=== PATIENT | female | born 1970 | race Native Hawaiian/Other Pacific Islander ===

== ENCOUNTER 2017-07-31 12:23 | Outpatient (CLI) | payer OTHER ==
[~2017-07-31 12:23] MED LIST: ACET7.5T70 PO; AMLO10TA PO; BUPR150T PO; CELEXA20 MG PO; ENTERIC COATED325 MG PO; GABA100C2 PO; GLIP10TA55 PO; HYDR25TA60 PO; LISI20TA11 PO; LOFIBRA54 MG PO; LOPRESSOR100 MG PO; LOVASTATIN40 MG PO; METF500T PO; PROAIR HFA IN; RLFLU500T PO; SPIRIVA IN; ZESTRIL40 MG PO
== END 2017-07-31 12:26 | disposition short-term general hospital (02) ==
LOC: AMB 12:23
DX: R07.89 Other chest pain (principal); R05 Cough; R50.9 Fever, unspecified
CPT/HCPCS: A0425; A0427

== ENCOUNTER 2017-07-31 12:26 | Emergency (ER) | payer OTHER ==
[~2017-07-31] VITALS: Ht 165.1 cm; Wt 74.8 kg
[2017-07-31 12:26] VITALS: TEMP 97.7
[2017-07-31 13:30] VITALS: BP 150/84
[2017-07-31 13:31] LABS: PLATELET COUNT 222 K/uL (152-353)
[2017-07-31 13:36] LABS: POTASSIUM 4.4 mmol/L (3.6-5.2); SODIUM 141 mmol/L (136-145)
== END 2017-07-31 14:21 | disposition home or self-care (01) ==
LOC: ED 12:26
PROVIDERS: Specialist
DX: J44.1 Chronic obstructive pulmonary disease with (acute) exacerbation (principal); J06.9 Acute upper respiratory infection, unspecified
CPT/HCPCS: 36415; 80053; 85027; 94640; 94664; 94760; 99283

== ENCOUNTER 2017-08-01 11:15 | Observation (INO) | payer OTHER ==
[~2017-08-01] VITALS: Ht 165.1 cm; Wt 73.5 kg
[2017-08-01 15:48] LABS: POTASSIUM 4.5 mmol/L (3.6-5.2); SODIUM 136 mmol/L (136-145)
[2017-08-01 16:09] LABS: PLATELET COUNT 278 K/uL (152-353)
[2017-08-01 17:33] VITALS: BP 147/89; TEMP 98.8; Ht 165.1 cm; Wt 73.5 kg
[2017-08-01 20:00] VITALS: BP 102/57; TEMP 97.7
--- NOTE | 2017-08-01 23:40 | NUR ---
RESPIRATORY THERAPIST AT BEDSIDE. BREATHING TREATMENT GIVEN.
--- NOTE | 2017-08-01 23:49 | NUR ---
PT REQUESTS MEDICATION FOR COUGH. ER DOCTOR NOTIFIED. ORDER RECEIVED.
[2017-08-02] VITALS: BP 113/45; TEMP 97.6
--- NOTE | 2017-08-02 00:25 | NUR ---
TESSALON PERLES 100MG GIVEN PO FOR COUGH.
[2017-08-02 04:00] VITALS: BP 142/84; TEMP 97.8
--- NOTE | 2017-08-02 04:31 | NUR ---
PT STATES SHE FEELS RAW IN CHEST FROM COUGHING. PT GIVEN TYLENOL 500MG PO
[2017-08-02 08:00] VITALS: BP 159/91; TEMP 98.3
[2017-08-02 11:51] VITALS: BP 143/73; TEMP 98.7
--- NOTE | 2017-08-02 14:09 | NUR ---
DISCHARGE INSTRUCTIONS GIVEN TO PT ALONG WITH ORDERED PRESCRIPTIONS. PT VERBALIZED UNDERSTANDING. PT D/C VIA WHEELCHAIR AT THIS TIME.
== END 2017-08-02 14:07 | disposition home or self-care (01) ==
LOC: MED/SURG 11:15
PROVIDERS: ADMIT Nurse Practitioner
DX: J18.8 Other pneumonia, unspecified organism (principal); R06.02 Shortness of breath; I10 Essential (primary) hypertension; Z72.0 Tobacco use; R05 Cough; J84.89 Other specified interstitial pulmonary diseases; I25.10 Atherosclerotic heart disease of native coronary artery without angina pectoris
CPT/HCPCS: 36600; 80053; 82805; 85027; 87040; 87070; 87205; 93005; 94640; 94664; 94760; 99220; G0378; G0379; J2930

== ENCOUNTER 2017-12-01 14:39 | Outpatient (CLI) | payer OTHER | END 2017-12-01 14:52 | disposition short-term general hospital (02) | LOC: AMB 14:39 | DX: R07.89 Other chest pain (principal); R11.2 Nausea with vomiting, unspecified | CPT/HCPCS: A0425; A0427 ==

== ENCOUNTER 2017-12-03 05:29 | Observation (INO) | payer OTHER ==
[~2017-12-03] VITALS: Ht 165.1 cm; Wt 85.0 kg
[2017-12-03 05:28] VITALS: BP 158/102; TEMP 97.3
[2017-12-03 05:54] LABS: POTASSIUM 3.9 mmol/L (3.6-5.2)
[2017-12-03 06:09] LABS: PLATELET COUNT 235 K/uL (152-353)
[2017-12-03 06:41] VITALS: BP 164/95
[2017-12-03 07:23] VITALS: BP 161/88
[2017-12-03 08:00] VITALS: BP 155/89
[2017-12-03 18:14] VITALS: BP 158/85; TEMP 98.7; Ht 165.1 cm; Wt 85.0 kg
[2017-12-03 20:00] VITALS: BP 143/74; TEMP 98.9
[2017-12-04] VITALS: BP 173/79; TEMP 98.8
[2017-12-04 04:00] VITALS: BP 155/74; TEMP 98.7
[2017-12-04 05:24] LABS: PLATELET COUNT 180 K/uL (152-353)
[2017-12-04 05:38] LABS: POTASSIUM 3.6 mmol/L (3.6-5.2)
[2017-12-04 07:49] VITALS: BP 149/80; TEMP 98.6
[2017-12-04] MEDS ORDERED: LEVAQUIN250 MG PO ×2 (11:57)
== END 2017-12-04 12:25 | disposition home or self-care (01) ==
LOC: ED 05:29 → MED/SURG 06:30
PROVIDERS: Specialist
DX: J18.8 Other pneumonia, unspecified organism (principal); R06.02 Shortness of breath
CPT/HCPCS: 36415; 36600; 80053; 82550; 82805; 84484; 85027; 87040; 93005; 94640; 94664; 94760; 96361; 96365; 96366; 96367; 96372; 96374; 96375; 99220; 99284; G0378; J0696; J1650; J1885; J2930; J7120

== ENCOUNTER 2018-06-12 18:00 | Outpatient (CLI) | payer OTHER ==
[~2018-06-12 18:00] MED LIST changes: +LEVAQUIN250 MG PO
== END 2018-06-12 18:02 | disposition short-term general hospital (02) ==
LOC: AMB 18:00
DX: R07.89 Other chest pain (principal)
CPT/HCPCS: A0425; A0427

== ENCOUNTER 2018-06-12 18:04 | Emergency (ER) | payer OTHER ==
[~2018-06-12] VITALS: Ht 157.5 cm; Wt 68.0 kg
[2018-06-12 18:04] VITALS: TEMP 98
[2018-06-12 18:27] LABS: PLATELET COUNT 184 K/uL (152-353)
[2018-06-12 18:50] LABS: POTASSIUM 3.5 mmol/L (3.6-5.2); SODIUM 135 mmol/L (136-145)
[2018-06-12 19:15] VITALS: BP 113/72
== END 2018-06-12 19:20 | disposition home or self-care (01) ==
LOC: ED 18:04
PROVIDERS: Family Medicine
DX: R07.89 Other chest pain (principal); R00.0 Tachycardia, unspecified
CPT/HCPCS: 80053; 84484; 85027; 93005; 99283

== ENCOUNTER 2018-06-17 11:21 | Outpatient (CLI) | payer OTHER ==
[2018-06-17] MEDS ORDERED: TRAMADOL HCL100 MG PO (14:44)
[2018-06-17] MEDS ORDERED: 904272561 PO (14:45)
== END 2018-06-17 11:24 | disposition short-term general hospital (02) ==
LOC: AMB 11:21
DX: L08.89 Other specified local infections of the skin and subcutaneous tissue (principal)
CPT/HCPCS: A0425; A0427

== ENCOUNTER 2018-06-17 11:28 | Inpatient (IN) | payer OTHER ==
[~2018-06-17] VITALS: Ht 165.1 cm; Wt 77.1 kg
[2018-06-17] VITALS (7 sets, daily range): BP systolic 102–144; BP diastolic 54–84; TEMP 98.1–98.7; Ht 165.1 cm; Wt 77.1 kg
[2018-06-17 12:09] LABS: PLATELET COUNT 312 K/uL (152-353)
[2018-06-17 12:13] LABS: POTASSIUM 4.1 mmol/L (3.6-5.2)
[2018-06-17] MEDS ORDERED: TRAMADOL HCL100 MG PO (14:44)
[2018-06-17] MEDS ORDERED: 904272561 PO (14:45)
[2018-06-18 00:07] VITALS: BP 116/67; TEMP 100.3
[2018-06-18 04:00] VITALS: BP 96/58; TEMP 98.5
[2018-06-18 05:13] LABS: PLATELET COUNT 277 K/uL (152-353)
[2018-06-18 05:35] LABS: POTASSIUM 5.4 mmol/L (3.6-5.2)
[2018-06-18 08:08] VITALS: BP 96/64; TEMP 98.4
[2018-06-18 12:00] VITALS: BP 108/48; TEMP 98.8
[2018-06-18 16:00] VITALS: BP 108/61; TEMP 98.5
[2018-06-18 20:00] VITALS: BP 118/59; TEMP 98.8
[2018-06-19] VITALS: BP 113/59; TEMP 98.8
[2018-06-19 08:00] VITALS: BP 143/87; TEMP 98.6
[2018-06-19 12:00] VITALS: BP 122/77; TEMP 99.1
[2018-06-19 16:00] VITALS: BP 132/77; TEMP 98.4
[2018-06-19 20:00] VITALS: BP 134/75; TEMP 98.7
[2018-06-20 08:00] VITALS: BP 153/99; TEMP 97.7
== END 2018-06-20 10:10 | disposition left against medical advice (07) | DRG 603 ==
LOC: ED 11:28 → MED/SURG 14:10
PROVIDERS: Emergency Medicine
DX: L03.115 Cellulitis of right lower limb (principal); I10 Essential (primary) hypertension; I25.10 Atherosclerotic heart disease of native coronary artery without angina pectoris; E78.49 Other hyperlipidemia; Z72.0 Tobacco use; E11.9 Type 2 diabetes mellitus without complications; I25.2 Old myocardial infarction; J44.9 Chronic obstructive pulmonary disease, unspecified
CPT/HCPCS: 36415; 36600; 80053; 81000; 82805; 83605; 85027; 87040; 94640; 94664; 94760; 96360; 96361; 96365; 96375; 99284; J0696; J1100; J1815; J1885; J2175; J2270; J2543; J2930

== ENCOUNTER 2018-07-02 11:01 | Outpatient (CLI) | payer OTHER ==
[~2018-07-02 11:01] MED LIST changes: +904272561 PO; +TRAMADOL HCL100 MG PO
[2018-07-02 11:31] LABS: PLATELET COUNT 404 K/uL (152-353)
[2018-07-02 11:38] LABS: POTASSIUM 4.3 mmol/L (3.6-5.2)
== END 2018-07-02 19:19 | disposition home or self-care (01) ==
LOC: INF 11:01
DX: L03.115 Cellulitis of right lower limb (principal)
CPT/HCPCS: 80053; 85027; 85651; 86140; 96365; J3370

== ENCOUNTER 2018-07-03 08:17 | Outpatient (CLI) | payer OTHER ==
[~2018-07-03] VITALS: Ht 165.1 cm; Wt 76.2 kg
[2018-07-03 08:25] VITALS: BP 1298/71; TEMP 98.4
[2018-07-03 08:43] VITALS: BP 121/70; TEMP 98.6
== END 2018-07-03 22:37 | disposition home or self-care (01) ==
LOC: INF 08:17
DX: L03.115 Cellulitis of right lower limb (principal)
CPT/HCPCS: 96365; J3370

== ENCOUNTER 2018-07-30 15:26 | Inpatient (IN) | payer OTHER ==
[~2018-07-30] VITALS: Ht 160 cm; Wt 89.9 kg
[2018-07-30 15:26] VITALS: BP 150/82; TEMP 99.5
[2018-07-30 16:13] LABS: PLATELET COUNT 267 K/uL (152-353)
[2018-07-30 16:26] VITALS: BP 136/76
[2018-07-30 16:28] LABS: POTASSIUM 3.9 mmol/L (3.6-5.2)
[2018-07-30 17:26] VITALS: BP 168/83
[2018-07-30 19:21] VITALS: BP 142/89; TEMP 98.9; Ht 160 cm; Wt 89.9 kg
[2018-07-30 20:00] VITALS: BP 139/77; TEMP 98.6
[2018-07-31] VITALS: BP 123/61; TEMP 98.1
[2018-07-31 04:00] VITALS: BP 124/66; TEMP 98.6
[2018-07-31 08:00] VITALS: BP 123/61; TEMP 98.4
[2018-07-31 16:00] VITALS: BP 101/48; TEMP 97.9
[2018-07-31 20:00] VITALS: BP 107/64; TEMP 98.2
[2018-08-01 00:18] VITALS: BP 105/49; TEMP 98.2
[2018-08-01 04:00] VITALS: BP 136/67; TEMP 98.8
[2018-08-01 06:22] LABS: PLATELET COUNT 202 K/uL (152-353)
[2018-08-01 06:49] LABS: POTASSIUM 4.4 mmol/L (3.6-5.2)
[2018-08-01 08:00] VITALS: BP 118/61; TEMP 97.7
[2018-08-01 12:00] VITALS: BP 110/67; TEMP 98.1
[2018-08-01 16:00] VITALS: BP 140/73; TEMP 97.9
[2018-08-01 20:00] VITALS: BP 133/83; TEMP 98.7
[2018-08-02] VITALS: BP 139/87; TEMP 98.4
[2018-08-02 04:00] VITALS: BP 155/79; TEMP 96.7
[2018-08-02 06:10] LABS: PLATELET COUNT 191 K/uL (152-353)
[2018-08-02 06:34] LABS: POTASSIUM 5.3 mmol/L (3.6-5.2)
[2018-08-02 08:00] VITALS: BP 146/81; TEMP 98.8
[2018-08-02 12:00] VITALS: BP 151/87; TEMP 98.4
[2018-08-02 16:03] VITALS: BP 137/82; TEMP 98.2
[2018-08-02 20:00] VITALS: BP 117/75; TEMP 98.8
[2018-08-03] VITALS (7 sets, daily range): BP systolic 109–144; BP diastolic 65–85; TEMP 97.6–98.7
[2018-08-03 05:45] LABS: PLATELET COUNT 170 K/uL (152-353)
[2018-08-03 06:00] LABS: POTASSIUM 3.9 mmol/L (3.6-5.2)
[2018-08-04 04:24] VITALS: BP 134/80; TEMP 97.9
[2018-08-04 05:45] LABS: PLATELET COUNT 224 K/uL (152-353)
[2018-08-04 06:05] LABS: POTASSIUM 4.2 mmol/L (3.6-5.2)
[2018-08-04 08:04] VITALS: BP 166/114; TEMP 97.8
[2018-08-04 12:03] VITALS: BP 162/103; TEMP 97.6
[2018-08-04 16:10] VITALS: BP 154/97; TEMP 97.6
[2018-08-04 19:54] VITALS: BP 154/96; TEMP 98.6
[2018-08-05] VITALS: BP 152/99; TEMP 97.9
[2018-08-05 04:00] VITALS: BP 143/87; TEMP 98.4
[2018-08-05 08:05] VITALS: BP 169/119; TEMP 98.7
[2018-08-05 08:33] LABS: PLATELET COUNT 265 K/uL (152-353)
[2018-08-05 08:39] LABS: POTASSIUM 4.1 mmol/L (3.6-5.2)
[2018-08-05 12:09] VITALS: BP 164/112; TEMP 98.7
== END 2018-08-05 12:15 | disposition short-term general hospital (02) | DRG 540 ==
LOC: ED 15:26 → MED/SURG 17:35 → ED 18:05 → MED/SURG 08-05 12:15
PROVIDERS: Family Medicine
PROC: 02HV33Z Insertion of Infusion Device into Superior Vena Cava, Percutaneous Approach (ICD-10-PCS; principal; 2018-08-03)
DX: M86.8X7 Other osteomyelitis, ankle and foot (principal); L03.115 Cellulitis of right lower limb; I25.10 Atherosclerotic heart disease of native coronary artery without angina pectoris; I10 Essential (primary) hypertension; I25.2 Old myocardial infarction; E78.49 Other hyperlipidemia; J44.9 Chronic obstructive pulmonary disease, unspecified; F41.8 Other specified anxiety disorders; F17.210 Nicotine dependence, cigarettes, uncomplicated; Z91.19 Patient's noncompliance with other medical treatment and regimen; R07.89 Other chest pain; I48.91 Unspecified atrial fibrillation; R79.89 Other specified abnormal findings of blood chemistry; R91.8 Other nonspecific abnormal finding of lung field; R59.1 Generalized enlarged lymph nodes
CPT/HCPCS: 36415; 36416; 36600; 80053; 80202; 81000; 82550; 82805; 83036; 84484; 85027; 85379; 87040; 93005; 94640; 94644; 94645; 94664; 94760; 96374; 99284; A9576; C1768; J1100; J1650; J1885; J2405; J2543; J2930; J3370; J3490; J7120; Q0177; Q9963

== ENCOUNTER 2018-08-05 12:38 | Outpatient (CLI) | payer OTHER | END 2018-08-05 14:01 | disposition short-term general hospital (02) | LOC: AMB 12:38 | DX: M86.8X7 Other osteomyelitis, ankle and foot (principal); L03.115 Cellulitis of right lower limb; I25.10 Atherosclerotic heart disease of native coronary artery without angina pectoris; I10 Essential (primary) hypertension; I25.2 Old myocardial infarction; E78.49 Other hyperlipidemia; J44.9 Chronic obstructive pulmonary disease, unspecified; F41.8 Other specified anxiety disorders; F17.210 Nicotine dependence, cigarettes, uncomplicated; Z91.19 Patient's noncompliance with other medical treatment and regimen; R07.89 Other chest pain; I48.91 Unspecified atrial fibrillation; R79.89 Other specified abnormal findings of blood chemistry; R91.8 Other nonspecific abnormal finding of lung field; R59.1 Generalized enlarged lymph nodes | CPT/HCPCS: A0425; A0427 ==

== ENCOUNTER 2018-10-02 14:29 | Outpatient (CLI) | payer OTHER | END 2018-10-02 23:34 | disposition home or self-care (01) | LOC: RAD 14:29 | DX: M79.672 Pain in left foot (principal) ==

== ENCOUNTER 2018-12-15 11:13 | Emergency (ER) | payer OTHER ==
[~2018-12-15] VITALS: Ht 160 cm; Wt 89.8 kg
[2018-12-15 11:29] LABS: PLATELET COUNT 295 K/uL (152-353)
[2018-12-15 11:38] LABS: POTASSIUM 4.1 mmol/L (3.6-5.2)
[2018-12-15 13:48] VITALS: BP 132/89; TEMP 98
== END 2018-12-15 14:05 | disposition home or self-care (01) ==
LOC: ED 11:13
PROVIDERS: Emergency Medicine
DX: I50.9 Heart failure, unspecified (principal); R00.0 Tachycardia, unspecified
CPT/HCPCS: 80053; 81000; 82550; 82805; 83880; 84484; 85027; 93005; 96374; 96375; 99284; J1940; J2405

== ENCOUNTER 2018-12-23 20:17 | Outpatient (CLI) | payer OTHER | END 2018-12-23 20:20 | disposition short-term general hospital (02) | LOC: AMB 20:17 | DX: R06.02 Shortness of breath (principal) | CPT/HCPCS: A0425; A0427 ==

== ENCOUNTER 2018-12-23 20:25 | Emergency (ER) | payer OTHER ==
[~2018-12-23] VITALS: Ht 160 cm; Wt 77.1 kg
[2018-12-23 20:34] VITALS: TEMP 96.8
[2018-12-23 21:12] LABS: PLATELET COUNT 406 K/uL (152-353)
[2018-12-23 21:27] LABS: POTASSIUM 4.7 mmol/L (3.6-5.2); SODIUM 140 mmol/L (136-145)
[2018-12-23 22:41] VITALS: BP 148/108
== END 2018-12-23 23:10 | disposition home or self-care (01) ==
LOC: ED 20:25
PROVIDERS: Family Medicine
DX: R07.89 Other chest pain (principal)
CPT/HCPCS: 80053; 81000; 82550; 84484; 85027; 93005; 96374; 96375; 96376; 99284; J2405; J3490

== ENCOUNTER 2019-01-17 00:40 | Outpatient (CLI) | payer OTHER | END 2019-01-17 00:45 | disposition short-term general hospital (02) | LOC: AMB 00:40 | DX: R06.02 Shortness of breath (principal) | CPT/HCPCS: A0425; A0427 ==

== ENCOUNTER 2019-01-17 00:51 | Emergency (ER) | payer OTHER ==
[~2019-01-17] VITALS: Ht 160 cm; Wt 78.5 kg
[2019-01-17 01:33] LABS: PLATELET COUNT 297 K/uL (152-353)
[2019-01-17 01:45] LABS: POTASSIUM 4.4 mmol/L (3.6-5.2)
[2019-01-17 04:45] VITALS: BP 146/94; TEMP 97.2
== END 2019-01-17 04:47 | disposition home or self-care (01) ==
LOC: ED 00:51
PROVIDERS: Emergency Medicine
DX: J44.9 Chronic obstructive pulmonary disease, unspecified (principal); R79.89 Other specified abnormal findings of blood chemistry; R00.0 Tachycardia, unspecified
CPT/HCPCS: 36415; 80053; 82550; 82553; 83880; 84484; 85027; 85379; 93005; 94664; 96374; 96375; 99284; J1940; J2930; Q9963

== ENCOUNTER 2019-01-19 03:25 | Outpatient (CLI) | payer OTHER | END 2019-01-19 03:28 | disposition short-term general hospital (02) | LOC: AMB 03:25 | DX: R06.02 Shortness of breath (principal) | CPT/HCPCS: A0425; A0427 ==

== ENCOUNTER 2019-01-19 03:32 | Observation (INO) | payer OTHER ==
[~2019-01-19] VITALS: Ht 165.1 cm; Wt 90.0 kg
[2019-01-19 03:32] VITALS: BP 160/104; TEMP 98
[2019-01-19 04:28] LABS: PLATELET COUNT 354 K/uL (152-353)
[2019-01-19 04:34] LABS: POTASSIUM 3.2 mmol/L (3.6-5.2); SODIUM 141 mmol/L (136-145)
[2019-01-19 13:57] VITALS: BP 153/105; TEMP 97.5; Ht 165.1 cm; Wt 90.0 kg
[2019-01-19 16:00] VITALS: BP 136/96; TEMP 97.9
[2019-01-19 19:53] VITALS: BP 154/95; TEMP 97.9
== END 2019-01-19 21:00 | disposition left against medical advice (07) ==
LOC: ED 03:32 → MED/SURG 05:40
PROVIDERS: ADMIT Emergency Medicine
DX: R06.03 Acute respiratory distress (principal); R60.0 Localized edema; E87.6 Hypokalemia; I10 Essential (primary) hypertension; Z72.0 Tobacco use; I48.2 Chronic atrial fibrillation; I25.10 Atherosclerotic heart disease of native coronary artery without angina pectoris; I25.2 Old myocardial infarction; J44.9 Chronic obstructive pulmonary disease, unspecified; M15.8 Other polyosteoarthritis; M79.605 Pain in left leg; M79.604 Pain in right leg; K76.0 Fatty (change of) liver, not elsewhere classified
CPT/HCPCS: 80053; 82550; 82553; 83880; 84484; 85027; 85379; 93005; 94640; 94664; 94760; 96375; 96376; 99220; 99284; G0378; J1940

== ENCOUNTER 2019-01-21 16:43 | Emergency (ER) | payer OTHER ==
[~2019-01-21] VITALS: Ht 165.1 cm; Wt 89.8 kg
[2019-01-21 17:17] LABS: PLATELET COUNT 363 K/uL (152-353)
[2019-01-21 17:40] LABS: POTASSIUM 3.5 mmol/L (3.6-5.2); SODIUM 140 mmol/L (136-145)
[2019-01-21] MEDS ORDERED: ASPIRIN REGULA325 MG PO (18:23)
[2019-01-21] MEDS ORDERED: FURO40TA93 PO (18:24)
[2019-01-21 18:50] VITALS: TEMP 98.8
[2019-01-21 19:12] VITALS: BP 143/95
== END 2019-01-21 19:12 | disposition home or self-care (01) ==
LOC: ED 16:43
PROVIDERS: Emergency Medicine
DX: R06.09 Other forms of dyspnea (principal); I50.9 Heart failure, unspecified; J44.9 Chronic obstructive pulmonary disease, unspecified
CPT/HCPCS: 36415; 36600; 80053; 82550; 82553; 82805; 83735; 83880; 84484; 85027; 93005; 94664; 96374; 96375; 99284; J1940; J2405; J3490

== ENCOUNTER 2019-01-21 19:15 | Outpatient (CLI) | payer OTHER ==
[~2019-01-21 19:15] MED LIST changes: +ASPIRIN REGULA325 MG PO; +FURO40TA93 PO
== END 2019-01-21 20:13 | disposition short-term general hospital (02) ==
LOC: AMB 19:15
DX: R06.02 Shortness of breath (principal); J44.1 Chronic obstructive pulmonary disease with (acute) exacerbation
CPT/HCPCS: A0425; A0429

== ENCOUNTER 2019-01-25 05:44 | Inpatient (IN) | payer OTHER ==
[~2019-01-25] VITALS: Ht 165.1 cm; Wt 87.7 kg
[2019-01-25] VITALS (7 sets, daily range): BP systolic 133–192; BP diastolic 95–127; TEMP 97.5–98.7; Ht 165.1 cm; Wt 87.7 kg
[2019-01-25 06:22] LABS: PLATELET COUNT 322 K/uL (152-353)
[2019-01-25 06:29] LABS: SODIUM 141 mmol/L (136-145)
[2019-01-26] VITALS: BP 147/93; TEMP 97.8
[2019-01-26 04:00] VITALS: BP 138/105; TEMP 98.2
[2019-01-26 04:42] LABS: PLATELET COUNT 295 K/uL (152-353)
[2019-01-26 05:06] LABS: POTASSIUM 4.1 mmol/L (3.6-5.2)
[2019-01-26 08:00] VITALS: BP 143/101; TEMP 98
[2019-01-26 12:00] VITALS: BP 120/92; TEMP 97.8
[2019-01-26 16:00] VITALS: BP 132/82; TEMP 98.1
[2019-01-26 20:00] VITALS: BP 124/73; TEMP 98.5
[2019-01-27] VITALS: BP 154/104; TEMP 98.5
[2019-01-27 04:00] VITALS: BP 127/86; TEMP 97.7
[2019-01-27 08:00] VITALS: BP 136/93; TEMP 97.4
[2019-01-27 08:28] LABS: PLATELET COUNT 292 K/uL (152-353)
[2019-01-27 08:41] LABS: POTASSIUM 4.3 mmol/L (3.6-5.2); SODIUM 140 mmol/L (136-145)
[2019-01-27 12:00] VITALS: BP 103/71; TEMP 97.8
[2019-01-27 16:00] VITALS: BP 114/79; TEMP 98
[2019-01-27 19:48] VITALS: BP 111/72; TEMP 97.9
[2019-01-28] VITALS: BP 138/93; TEMP 97.5
[2019-01-28 04:00] VITALS: BP 103/69; TEMP 97.5
[2019-01-28 05:37] LABS: POTASSIUM 4.4 mmol/L (3.6-5.2)
[2019-01-28 08:00] VITALS: BP 113/88; TEMP 97.6
[2019-01-28 12:00] VITALS: BP 95/67; TEMP 98.1
[2019-01-28] MEDS ORDERED: ONDA4TAB3 PO (13:29)
[2019-01-28] MEDS ORDERED: GUAI200S10 PO (13:29)
[2019-01-28] MEDS ORDERED: CLON1TAB18 PO (13:29)
[2019-01-28] MEDS ORDERED: ULTRAM 50MG TAB PO (13:29)
[2019-01-28] MEDS ORDERED: DIPH25CA90 PO (13:29)
[2019-01-28] MEDS ORDERED: IPRATROPIUM/ INH (13:29)
[2019-01-28] MEDS ORDERED: PRED20TA27 PO (13:33)
[2019-01-28] MEDS ORDERED: METFTAB PO (13:43)
[2019-01-28] MEDS ORDERED: ZITHROMAX500 MG PO (13:50)
[2019-01-28] MEDS ORDERED: AMOX500T5 PO (13:50)
== END 2019-01-28 13:20 | disposition home or self-care (01) | DRG 191 ==
LOC: ED 05:44 → MED/SURG 07:00
PROVIDERS: ADMIT Internal Medicine
DX: J44.0 Chronic obstructive pulmonary disease with (acute) lower respiratory infection (principal); L03.115 Cellulitis of right lower limb; J20.9 Acute bronchitis, unspecified; J44.1 Chronic obstructive pulmonary disease with (acute) exacerbation; E11.9 Type 2 diabetes mellitus without complications; I77.6 Arteritis, unspecified; R53.1 Weakness; Z91.19 Patient's noncompliance with other medical treatment and regimen; I25.10 Atherosclerotic heart disease of native coronary artery without angina pectoris; I25.2 Old myocardial infarction; I11.0 Hypertensive heart disease with heart failure
CPT/HCPCS: 36415; 80048; 80053; 82550; 82947; 83036; 83880; 84484; 85027; 85379; 85651; 86038; 86140; 86308; 87040; 93005; 94640; 94664; 94760; 96365; 96375; 99284; J0456; J1815; J1940; J2405; J2930

== ENCOUNTER 2019-02-14 22:31 | Outpatient (CLI) | payer OTHER ==
[~2019-02-14 22:31] MED LIST changes: +AMOX500T5 PO; +CLON1TAB18 PO; +DIPH25CA90 PO; +GUAI200S10 PO; +IPRATROPIUM/ INH; +METFTAB PO; +ONDA4TAB3 PO; +PRED20TA27 PO; +ULTRAM 50MG TAB PO; +ZITHROMAX500 MG PO
== END 2019-02-14 22:36 | disposition short-term general hospital (02) ==
LOC: AMB 22:31
DX: R06.02 Shortness of breath (principal); R07.89 Other chest pain
CPT/HCPCS: A0425; A0427

== ENCOUNTER 2019-02-14 22:40 | Inpatient (IN) | payer OTHER ==
[~2019-02-14] VITALS: Ht 165.1 cm; Wt 90.7 kg
[2019-02-14 22:40] VITALS: BP 153/110; TEMP 97.2
[2019-02-14 23:00] VITALS: BP 156/90
[2019-02-14 23:30] VITALS: BP 156/93
[2019-02-14 23:32] LABS: PLATELET COUNT 341 K/uL (152-353)
[2019-02-14 23:52] LABS: POTASSIUM 5.3 mmol/L (3.6-5.2); SODIUM 138 mmol/L (136-145)
[2019-02-15] VITALS (9 sets, daily range): BP systolic 108–197; BP diastolic 74–107; TEMP 97.2–97.3
== END 2019-02-15 05:45 | disposition short-term general hospital (02) | DRG 208 ==
LOC: ED 22:40 → MED/SURG 02-15 00:32 → ICU 02-15 02:35
PROVIDERS: ADMIT Internal Medicine
PROC: 5A1935Z Respiratory Ventilation, Less than 24 Consecutive Hours (ICD-10-PCS; principal; 2019-02-15)
PROC: 0BH17EZ Insertion of Endotracheal Airway into Trachea, Via Natural or Artificial Opening (ICD-10-PCS; 2019-02-15)
DX: J44.1 Chronic obstructive pulmonary disease with (acute) exacerbation (principal); R09.2 Respiratory arrest; I10 Essential (primary) hypertension; E11.9 Type 2 diabetes mellitus without complications; R09.02 Hypoxemia
CPT/HCPCS: 31500; 36600; 80053; 82550; 82805; 83880; 84484; 85027; 85379; 87040; 93005; 94640; 94664; 96365; 96366; 96375; 99284; J0456; J0461; J0696; J1940; J2060; J2930; J3490

== ENCOUNTER 2019-02-21 14:22 | Emergency (ER) | payer OTHER ==
[~2019-02-21] VITALS: Ht 165.1 cm; Wt 90.7 kg
[2019-02-21 14:47] LABS: PLATELET COUNT 271 K/uL (152-353)
[2019-02-21 15:20] LABS: POTASSIUM 4.4 mmol/L (3.6-5.2); SODIUM 142 mmol/L (136-145)
[2019-02-21 23:40] VITALS: BP 140/89; TEMP 97
== END 2019-02-21 23:40 | disposition short-term general hospital (02) ==
LOC: ED 14:22
PROVIDERS: Family Medicine
DX: J44.1 Chronic obstructive pulmonary disease with (acute) exacerbation (principal); R06.02 Shortness of breath; R00.0 Tachycardia, unspecified; I25.10 Atherosclerotic heart disease of native coronary artery without angina pectoris; Z98.890 Other specified postprocedural states
CPT/HCPCS: 36600; 80053; 81000; 82550; 82805; 84484; 85027; 93005; 94664; 96374; 99285; J1100; J2060; J2405; J3490

== ENCOUNTER 2019-03-06 13:30 | Outpatient (CLI) | payer OTHER | END 2019-03-06 13:36 | disposition short-term general hospital (02) | LOC: AMB 13:30 | DX: R07.89 Other chest pain (principal); R06.09 Other forms of dyspnea | CPT/HCPCS: A0425; A0427 ==

== ENCOUNTER 2019-03-06 13:42 | Emergency (ER) | payer OTHER ==
[~2019-03-06] VITALS: Ht 165.1 cm; Wt 83.9 kg
[2019-03-06 14:50] LABS: PLATELET COUNT 223 K/uL (152-353)
[2019-03-06 14:54] LABS: POTASSIUM 3.8 mmol/L (3.6-5.2); SODIUM 144 mmol/L (136-145)
[2019-03-06 18:44] VITALS: BP 131/89; TEMP 98.1
== END 2019-03-06 18:44 | disposition home or self-care (01) ==
LOC: ED 13:42
PROVIDERS: Emergency Medicine
DX: I50.9 Heart failure, unspecified (principal); R07.89 Other chest pain
CPT/HCPCS: 80053; 82550; 82553; 83880; 84484; 85027; 85379; 93005; 96374; 96375; 99284; J1940; J2360

== ENCOUNTER 2019-03-08 11:20 | Outpatient (CLI) | payer OTHER ==
[2019-03-08] MEDS ORDERED: METO50TA27 PO (16:41)
[2019-03-08] MEDS ORDERED: OXYC5TAB53 PO (16:42)
== END 2019-03-08 11:21 | disposition short-term general hospital (02) ==
LOC: AMB 11:20
DX: R06.02 Shortness of breath (principal)
CPT/HCPCS: A0425; A0429

== ENCOUNTER 2019-03-08 11:28 | Observation (INO) | payer OTHER ==
[~2019-03-08] VITALS: Ht 165.1 cm; Wt 79.1 kg
[2019-03-08] VITALS (7 sets, daily range): BP systolic 124–146; BP diastolic 72–88; TEMP 97.5–98.8; Ht 165.1 cm; Wt 79.1 kg
[2019-03-08 12:23] LABS: PLATELET COUNT 199 K/uL (152-353)
[2019-03-08 12:37] LABS: POTASSIUM 4.1 mmol/L (3.6-5.2); SODIUM 141 mmol/L (136-145)
[2019-03-08] MEDS ORDERED: METO50TA27 PO (16:41)
[2019-03-08] MEDS ORDERED: OXYC5TAB53 PO (16:42)
[2019-03-09] VITALS (7 sets, daily range): BP systolic 91–113; BP diastolic 62–66; TEMP 97.3–98.3
[2019-03-09 04:58] LABS: PLATELET COUNT 145 K/uL (152-353)
[2019-03-09 05:17] LABS: POTASSIUM 3.9 mmol/L (3.6-5.2)
[2019-03-10 00:29] VITALS: BP 101/64; TEMP 98.2
[2019-03-10 04:00] VITALS: BP 94/76; TEMP 98.4
[2019-03-10 04:56] LABS: PLATELET COUNT 228 K/uL (152-353)
[2019-03-10 06:10] LABS: POTASSIUM 4.1 mmol/L (3.6-5.2)
[2019-03-10 08:00] VITALS: BP 103/64; TEMP 97.8
== END 2019-03-10 11:07 | disposition home or self-care (01) ==
LOC: ED 11:28 → MED/SURG 14:06
PROVIDERS: Student in an Organized Health Care Education/Training Program; ADMIT Family Medicine
DX: I50.33 Acute on chronic diastolic (congestive) heart failure (principal); R06.09 Other forms of dyspnea; R60.0 Localized edema; E83.42 Hypomagnesemia; J84.89 Other specified interstitial pulmonary diseases; I11.0 Hypertensive heart disease with heart failure; M15.8 Other polyosteoarthritis; Z91.19 Patient's noncompliance with other medical treatment and regimen; E86.0 Dehydration; D69.6 Thrombocytopenia, unspecified; E46 Unspecified protein-calorie malnutrition
CPT/HCPCS: 36415; 80053; 81000; 82550; 83735; 83880; 84484; 85027; 93005; 94640; 94664; 94760; 96374; 99220; 99284; G0378; J1940; J2550

== ENCOUNTER 2019-05-22 01:28 | Outpatient (CLI) | payer OTHER ==
[~2019-05-22 01:28] MED LIST changes: +METO50TA27 PO; +OXYC5TAB53 PO
== END 2019-05-22 01:33 | disposition short-term general hospital (02) ==
LOC: AMB 01:28
DX: R07.89 Other chest pain (principal); R06.89 Other abnormalities of breathing
CPT/HCPCS: A0425; A0429

== ENCOUNTER 2019-05-22 01:42 | Emergency (ER) | payer OTHER ==
[~2019-05-22] VITALS: Ht 165.1 cm; Wt 78.9 kg
[2019-05-22 01:42] VITALS: BP 150/94; TEMP 98.1
[2019-05-22 02:43] LABS: PLATELET COUNT 206 K/uL (152-353)
[2019-05-22 03:15] LABS: POTASSIUM 3.8 mmol/L (3.6-5.2); SODIUM 140 mmol/L (136-145)
== END 2019-05-22 07:11 | disposition short-term general hospital (02) ==
LOC: ED 01:42
PROVIDERS: Emergency Medicine
DX: J44.1 Chronic obstructive pulmonary disease with (acute) exacerbation (principal); R07.89 Other chest pain; I49.8 Other specified cardiac arrhythmias; R00.0 Tachycardia, unspecified; I45.81 Long QT syndrome
CPT/HCPCS: 36415; 80053; 83735; 83880; 84484; 85027; 93005; 94664; 96372; 99285; J2930

== ENCOUNTER 2019-05-22 07:18 | Outpatient (CLI) | payer OTHER | END 2019-05-22 07:52 | disposition short-term general hospital (02) | LOC: AMB 07:18 | DX: R06.02 Shortness of breath (principal); R07.89 Other chest pain; J44.1 Chronic obstructive pulmonary disease with (acute) exacerbation; I49.8 Other specified cardiac arrhythmias | CPT/HCPCS: A0425; A0427 ==

== ENCOUNTER 2019-06-13 18:23 | Emergency (ER) | payer OTHER ==
[~2019-06-13] VITALS: Ht 165.1 cm; Wt 78.9 kg
[2019-06-13 19:44] VITALS: BP 136/91; TEMP 98.1
== END 2019-06-13 19:45 | disposition home or self-care (01) ==
LOC: ED 18:23
DX: S93.691A Other sprain of right foot, initial encounter (principal); W17.89XA Other fall from one level to another, initial encounter; Y92.89 Other specified places as the place of occurrence of the external cause
CPT/HCPCS: 99283

== ENCOUNTER 2019-08-13 14:47 | Outpatient (CLI) | payer OTHER | END 2019-08-13 14:54 | disposition short-term general hospital (02) | LOC: AMB 14:47 | DX: R06.02 Shortness of breath (principal); R22.41 Localized swelling, mass and lump, right lower limb | CPT/HCPCS: A0425; A0427 ==

== ENCOUNTER 2019-08-13 15:03 | Emergency (ER) | payer OTHER ==
[~2019-08-13] VITALS: Ht 165.1 cm; Wt 78.9 kg
[2019-08-13 15:07] VITALS: TEMP 98.4
[2019-08-13 16:10] LABS: PLATELET COUNT 209 K/uL (152-353)
[2019-08-13 16:17] VITALS: BP 137/77
[2019-08-13 16:17] LABS: POTASSIUM 4.2 mmol/L (3.6-5.2); SODIUM 143 mmol/L (136-145)
[2019-08-13 16:32] LABS: PARTIAL THROMBOPLASTIN TIME 22.5 SECONDS (24.5-33.6)
== END 2019-08-13 17:30 | disposition home or self-care (01) ==
LOC: ED 15:03
PROVIDERS: Hospitalist
DX: J44.1 Chronic obstructive pulmonary disease with (acute) exacerbation (principal); I50.9 Heart failure, unspecified; J40 Bronchitis, not specified as acute or chronic; R00.0 Tachycardia, unspecified; F17.210 Nicotine dependence, cigarettes, uncomplicated
CPT/HCPCS: 36415; 36600; 80053; 81000; 82550; 82805; 83605; 83880; 84484; 85027; 85379; 85610; 85730; 87040; 93005; 94664; 96374; 96375; 99284; J1940; J2930

== ENCOUNTER 2019-08-15 23:52 | Outpatient (CLI) | payer OTHER ==
[2019-08-16] MEDS ORDERED: FURO40TA93 PO (16:40)
== END 2019-08-15 23:58 | disposition short-term general hospital (02) ==
LOC: AMB 23:52
DX: R06.09 Other forms of dyspnea (principal)
CPT/HCPCS: A0425; A0427

== ENCOUNTER 2019-08-16 00:04 | Observation (INO) | payer OTHER ==
[~2019-08-16] VITALS: Ht 165.1 cm; Wt 84.1 kg
[2019-08-16] VITALS (7 sets, daily range): BP systolic 102–145; BP diastolic 72–94; TEMP 97.2–98.4; Ht 165.1 cm; Wt 84.1 kg
[2019-08-16 00:59] LABS: PLATELET COUNT 222 K/uL (152-353)
[2019-08-16 01:02] LABS: POTASSIUM 4.3 mmol/L (3.6-5.2)
[2019-08-16 01:15] LABS: PARTIAL THROMBOPLASTIN TIME 21.4 SECONDS (24.5-33.6)
[2019-08-16] MEDS ORDERED: FURO40TA93 PO (16:40)
[2019-08-17 00:19] VITALS: BP 132/75; TEMP 98.2
[2019-08-17 04:00] VITALS: BP 131/88; TEMP 98
[2019-08-17 05:03] LABS: PLATELET COUNT 225 K/uL (152-353)
[2019-08-17 05:21] LABS: POTASSIUM 4.6 mmol/L (3.6-5.2)
[2019-08-17 06:27] LABS: PARTIAL THROMBOPLASTIN TIME 20.5 SECONDS (24.5-33.6)
[2019-08-17 08:00] VITALS: BP 126/77; TEMP 97.4
== END 2019-08-17 08:50 | disposition home or self-care (01) ==
LOC: ED 00:10 → MED/SURG 02:05
PROVIDERS: Family Medicine; ADMIT Hospitalist
DX: J96.01 Acute respiratory failure with hypoxia (principal); J44.1 Chronic obstructive pulmonary disease with (acute) exacerbation; I47.1 Supraventricular tachycardia; I10 Essential (primary) hypertension; R06.02 Shortness of breath; I25.10 Atherosclerotic heart disease of native coronary artery without angina pectoris; I25.2 Old myocardial infarction; Z99.81 Dependence on supplemental oxygen; Z72.0 Tobacco use; R73.9 Hyperglycemia, unspecified; D72.828 Other elevated white blood cell count; I50.9 Heart failure, unspecified
CPT/HCPCS: 36415; 80053; 80307; 81000; 82550; 82948; 83880; 84484; 85027; 85379; 85610; 85730; 86318; 87040; 93005; 94640; 94664; 94760; 96365; 96372; 96374; 96375; 99220; 99284; G0378; J1650; J1815; J1940; J1956; J2930; J3490

== ENCOUNTER 2019-09-09 10:53 | Outpatient (CLI) | payer OTHER | END 2019-09-09 10:58 | disposition short-term general hospital (02) | LOC: AMB 10:53 | DX: R07.89 Other chest pain (principal); R06.02 Shortness of breath | CPT/HCPCS: A0425; A0427 ==

== ENCOUNTER 2019-09-09 11:02 | Observation (INO) | payer OTHER ==
[~2019-09-09] VITALS: Ht 160 cm; Wt 88.7 kg
[2019-09-09 11:02] VITALS: BP 105/56; TEMP 97.7
[2019-09-09 12:00] VITALS: BP 113/61
[2019-09-09 12:18] LABS: PLATELET COUNT 233 K/uL (152-353)
[2019-09-09 12:20] LABS: POTASSIUM 4.9 mmol/L (3.6-5.2)
[2019-09-09 13:00] VITALS: BP 120/66
[2019-09-09 14:00] VITALS: BP 118/60
[2019-09-09 17:56] VITALS: BP 110/53; TEMP 99.4; Ht 160 cm; Wt 88.7 kg
--- NOTE | 2019-09-09 19:40 | NUR ---
1600 PT ARRIVED TO FLOOR VIA W/C FROM ER. 1615 PT SITTING UP IN BED IN HF. NAD NOTED. PT C/O PAIN IN RIGHT UPPER QUADRANT. PT STATES "I THINK IT'S JUST FROM ALL THE COUGHING." PT THEN STATES "MY RIGHT LEG IS HURTING SOME TOO." PT INFORMED SOON WE GET ORDERS FOR SOMETHING FOR PAIN WE WOULD BRING IT TO HER. PT VERBALIZED UNDERSTANDING. PT FAMILY AT BEDSIDE. INFORMED PT AND FAMILY ONE OF THE RN'S WOULD BE BACK IN TO DO PT'S HEAD TO TOE ASSESSMENT. PT DENIES ANY NEW SURGERIES, DIAGNOSIS, OR PROBLEMS SINCE LAST VISIT.
[2019-09-09 20:00] VITALS: BP 131/60; TEMP 98.5
[2019-09-10] VITALS: BP 97/70; TEMP 98.4
[2019-09-10 04:00] VITALS: BP 139/93; TEMP 98.2
[2019-09-10 06:20] LABS: PLATELET COUNT 225 K/uL (152-353)
[2019-09-10 06:34] LABS: POTASSIUM 4.8 mmol/L (3.6-5.2)
[2019-09-10 08:00] VITALS: BP 138/78; TEMP 98.3
--- NOTE | 2019-09-10 08:51 | NUR ---
PT LYING IN BED WITH EYES OPENED AND WATCHING TV. O2 VIA N/C IS ON. PT REQUESTED A PRN BREATHING TX, AND RESPIRATORY IS NOTIFIED. RIGHT LOWER EXTREMITY ELEVATED ON PILLOW, D/T TO EDEMA, AND SORENESS. NO REDNESS NOTED IN RIGHT LOWER EXTREMITY AT THIS TIME. NAD NOTED AND CALL LIGHT IS WITHIN REACH. WILL CONT TO MONITOR.
[2019-09-10 20:00] VITALS: BP 118/67; TEMP 98.3
[2019-09-11] VITALS: BP 114/67; TEMP 98.8
[2019-09-11 04:00] VITALS: BP 120/76; TEMP 98.6
--- NOTE | 2019-09-11 08:55 | NUR ---
DR ANNMARIE GARCIA IN TO SEE PT. PT RESTING IN LF. A& O X4.
--- NOTE | 2019-09-11 12:30 | NUR ---
PT SITTING UP FEEDING SELF LUNCH. FAMILY AT BS. CONTINUES TO COUGH T INTERVALS MENDEZ COLORED SM AMT PHLEGM.
--- NOTE | 2019-09-11 13:18 | NUR ---
PT ON R SIDE HOB UP. PT MEDICATED FOR R LEG PAIN, #6 ON A PAIN SCALE. FAMILY AT .
--- NOTE | 2019-09-11 16:31 | NUR ---
PT RESTING ON R SIDE HOB UP. FAMILY AT BS.NO NOTED DISTRESS & NO C/O PAIN.
--- NOTE | 2019-09-11 17:03 | NUR ---
PT'S BROTHER AT REQUESTING A 'GUEST TRAY SINCE I'LL BE STAYING WITH HER TONIGHT'. EXPLAINED TO PT & FAMILY THAT A GUESS TRAY WAS ONLY FOR FAMILY THAT REQUIRED WERE NECESSARY TO STAY TO HELP WITH PT'S CARE. PT UPSET & WANTING TO LEAVE 'I JUST WANT TO GO HOME'.REPORTED TO DR ANNMARIE GARCIA. DR GARCIA WANTED EXPLANATION GIVEN TO FAMILY WHY WE PROVIDE GUEST TRAYS & WE WOULD GIVE BROTHER ONE FOR THE NIGHT ONLY. DR GARCIA WANTED PT TO STAY UNTIL THE AM IF POSSIBLE.
--- NOTE | 2019-09-11 18:30 | NUR ---
PT C/O ' THERE IS NOT ENOUGH FOOD ON MY TRAY TO EAT, YOU GIVE ME STEROIDS & THEN YOU DON'T FEED ME,JACI ALREADY SHARED IT ON FACEBOOK TO. INFORMED PT THAT WE WOULD NOTIFY DIETARY. PT HAS ALREADY EATEN HER DINNER & HER BROTHER HAS EATEN HIS.
--- NOTE | 2019-09-11 18:45 | NUR ---
PT'S BROTHER UP TO THE DESK, STATES' SHE JUST WANTS TO GO,HAVE YALL GOT HER PAPERS READY?. LAINEY CARNEY REAGENT TENDER NURSE IN TO SEE PT. PT CONTINUES TO REFUSE TO STAY. PT PULLED OUT HER OWN IV. PT SIGNED OUT AMA & LEFT AMBULATORY WITH HER BROTHER. DR ANNMARIE GARCIA NOTIFIED.
== END 2019-09-11 19:25 | disposition left against medical advice (07) ==
LOC: ED 11:11 → MED/SURG 14:00
PROVIDERS: Internal Medicine; ADMIT Emergency Medicine
DX: J44.1 Chronic obstructive pulmonary disease with (acute) exacerbation (principal); R07.89 Other chest pain; I25.2 Old myocardial infarction; I25.10 Atherosclerotic heart disease of native coronary artery without angina pectoris; I10 Essential (primary) hypertension; R10.31 Right lower quadrant pain; R06.02 Shortness of breath
CPT/HCPCS: 36415; 80048; 80053; 82550; 83735; 83880; 84484; 85027; 93005; 94640; 94664; 94760; 96365; 96367; 96374; 96375; 99220; 99284; G0378; J0696; J1940; J1956; J2930

== ENCOUNTER 2019-09-12 00:01 | Outpatient (CLI) | payer OTHER | END 2019-09-12 00:06 | disposition short-term general hospital (02) | LOC: AMB 00:01 | DX: R06.02 Shortness of breath (principal); R07.89 Other chest pain; R00.0 Tachycardia, unspecified | CPT/HCPCS: A0425; A0427 ==

== ENCOUNTER 2019-09-12 00:06 | Inpatient (IN) | payer OTHER ==
[~2019-09-12] VITALS: Ht 160 cm; Wt 86.2 kg
[2019-09-12 00:16] VITALS: BP 125/70; TEMP 98.1
[2019-09-12 01:06] LABS: PLATELET COUNT 219 K/uL (152-353)
[2019-09-12 01:28] LABS: POTASSIUM 4.2 mmol/L (3.6-5.2); SODIUM 138 mmol/L (136-145)
[2019-09-12 04:00] VITALS: BP 156/87; TEMP 97.5; Ht 160 cm; Wt 86.2 kg
[2019-09-12 08:00] VITALS: BP 133/82; TEMP 98.2
[2019-09-12 20:02] VITALS: BP 119/77; TEMP 97.6
[2019-09-13 00:22] VITALS: BP 107/60; TEMP 98.6
[2019-09-13 08:00] VITALS: BP 105/62; TEMP 98.3
[2019-09-13 09:26] LABS: POTASSIUM 3.9 mmol/L (3.6-5.2)
[2019-09-13 09:57] LABS: PLATELET COUNT 212 K/uL (152-353)
[2019-09-14] VITALS: BP 119/68; TEMP 98.1
[2019-09-14 04:00] VITALS: BP 106/61; TEMP 98.6
[2019-09-14 08:00] VITALS: BP 99/59; TEMP 98.9
== END 2019-09-14 11:48 | disposition home or self-care (01) | DRG 638 ==
LOC: ED 00:06 → MED/SURG 02:38
PROVIDERS: Internal Medicine; ADMIT Emergency Medicine
DX: E11.65 Type 2 diabetes mellitus with hyperglycemia (principal); J44.1 Chronic obstructive pulmonary disease with (acute) exacerbation; L03.115 Cellulitis of right lower limb; I50.9 Heart failure, unspecified; I25.10 Atherosclerotic heart disease of native coronary artery without angina pectoris; E78.49 Other hyperlipidemia; I25.2 Old myocardial infarction; Z72.0 Tobacco use; I11.0 Hypertensive heart disease with heart failure
CPT/HCPCS: 36415; 80048; 80053; 82550; 82553; 83036; 83880; 84484; 85027; 85379; 93005; 94640; 94664; 94760; 96372; 99283; J1815; J2175

== ENCOUNTER 2019-09-24 18:02 | Outpatient (CLI) | payer OTHER | END 2019-09-24 18:06 | disposition short-term general hospital (02) | LOC: AMB 18:02 | DX: R06.03 Acute respiratory distress (principal); R06.2 Wheezing | CPT/HCPCS: A0425; A0427 ==

== ENCOUNTER 2019-09-24 18:08 | Emergency (ER) | payer OTHER ==
[~2019-09-24] VITALS: Ht 160 cm; Wt 81.2 kg
[2019-09-24 18:08] VITALS: BP 189/111; TEMP 99.7
[2019-09-24 19:51] LABS: PLATELET COUNT 171 K/uL (152-353)
[2019-09-24 20:00] LABS: POTASSIUM 3.9 mmol/L (3.6-5.2)
== END 2019-09-24 21:00 | disposition home or self-care (01) ==
LOC: ED 18:09
PROVIDERS: Family Medicine
DX: R06.09 Other forms of dyspnea (principal); R06.2 Wheezing
CPT/HCPCS: 80053; 85027; 87502; 87651; 93005; 96372; 96374; 96375; 99284; J1885; J2405; J2930

== ENCOUNTER 2019-09-29 10:58 | Outpatient (CLI) | payer OTHER | END 2019-09-29 11:02 | disposition short-term general hospital (02) | LOC: AMB 10:58 | DX: R06.02 Shortness of breath (principal) | CPT/HCPCS: A0425; A0427 ==

== ENCOUNTER 2019-09-29 11:04 | Inpatient (IN) | payer OTHER ==
[2019-09-29] VITALS (8 sets, daily range): BP systolic 129–176; BP diastolic 63–92; TEMP 97.3–98.9; Ht 165.1 cm; Wt 89.0 kg
[~2019-09-29] VITALS: Ht 165.1 cm; Wt 89.0 kg
[2019-09-29 11:33] LABS: PLATELET COUNT 184 K/uL (152-353)
[2019-09-29 11:39] LABS: POTASSIUM 4.2 mmol/L (3.6-5.2); SODIUM 146 mmol/L (136-145)
[2019-09-30 04:00] VITALS: BP 154/85; TEMP 98.8
[2019-09-30 08:22] VITALS: BP 162/80; TEMP 98.2
[2019-09-30 08:25] VITALS: BP 162/80; TEMP 98.2
[2019-09-30 12:04] VITALS: BP 141/79; TEMP 98.3
[2019-09-30 16:01] VITALS: BP 143/82; TEMP 98.4
[2019-09-30 20:00] VITALS: BP 123/68; TEMP 99.1
[2019-10-01] VITALS: BP 121/64; TEMP 98.8
[2019-10-01 04:00] VITALS: BP 131/78; TEMP 98.9
[2019-10-01 06:00] LABS: PLATELET COUNT 204 K/uL (152-353)
[2019-10-01 06:15] LABS: POTASSIUM 4.7 mmol/L (3.6-5.2)
[2019-10-01 08:00] VITALS: BP 124/82; TEMP 98.5
[2019-10-01 12:00] VITALS: BP 123/72; TEMP 97.4
[2019-10-01 16:00] VITALS: BP 123/67; TEMP 97.5
[2019-10-01 20:04] VITALS: BP 113/57; TEMP 98
[2019-10-02] VITALS: BP 138/93; TEMP 98.3
[2019-10-02 04:00] VITALS: BP 143/80; TEMP 98
[2019-10-02 08:00] VITALS: BP 140/67; TEMP 98
[2019-10-02 12:00] VITALS: BP 129/90; TEMP 98
== END 2019-10-02 01:00 | disposition home or self-care (01) | DRG 291 ==
LOC: ED 11:06 → MED/SURG 12:30
PROVIDERS: Internal Medicine; ADMIT Hospitalist
DX: I11.0 Hypertensive heart disease with heart failure (principal); I50.21 Acute systolic (congestive) heart failure; J44.1 Chronic obstructive pulmonary disease with (acute) exacerbation; E11.9 Type 2 diabetes mellitus without complications; I25.10 Atherosclerotic heart disease of native coronary artery without angina pectoris; E78.49 Other hyperlipidemia; R00.0 Tachycardia, unspecified
CPT/HCPCS: 36415; 80053; 81000; 82550; 82805; 82947; 83880; 84484; 85027; 85379; 85610; 85730; 87070; 87077; 87186; 87205; 93005; 94640; 94664; 94760; 96365; 96372; 96374; 96375; 96376; 99284; J1650; J1815; J1940; J1956; J2405; J2920; J2930

== ENCOUNTER 2019-10-16 01:18 | Outpatient (CLI) | payer OTHER | END 2019-10-16 01:22 | disposition short-term general hospital (02) | LOC: AMB 01:18 | DX: R06.09 Other forms of dyspnea (principal) | CPT/HCPCS: A0425; A0427 ==

== ENCOUNTER 2019-10-16 01:21 | Emergency (ER) | payer OTHER ==
[~2019-10-16] VITALS: Ht 165.1 cm; Wt 88.9 kg
[2019-10-16 01:22] VITALS: TEMP 98.2
[2019-10-16 02:36] LABS: PLATELET COUNT 251 K/uL (152-353)
[2019-10-16 03:02] LABS: PARTIAL THROMBOPLASTIN TIME 19.1 SECONDS (24.5-33.6)
[2019-10-16 03:04] LABS: POTASSIUM 4.8 mmol/L (3.6-5.2); SODIUM 143 mmol/L (136-145)
[2019-10-16 06:00] VITALS: BP 105/62
== END 2019-10-16 06:25 | disposition still patient (30) ==
LOC: ED 01:21
PROVIDERS: Student in an Organized Health Care Education/Training Program
PROC: 0T9B70Z Drainage of Bladder with Drainage Device, Via Natural or Artificial Opening (ICD-10-PCS; principal; 2019-10-16)
PROC: 0BH17EZ Insertion of Endotracheal Airway into Trachea, Via Natural or Artificial Opening (ICD-10-PCS; 2019-10-16)
PROC: 5A1935Z Respiratory Ventilation, Less than 24 Consecutive Hours (ICD-10-PCS; 2019-10-16)
DX: J96.92 Respiratory failure, unspecified with hypercapnia (principal); I50.9 Heart failure, unspecified; F17.210 Nicotine dependence, cigarettes, uncomplicated; E11.9 Type 2 diabetes mellitus without complications
CPT/HCPCS: 36415; 36600; 51702; 80053; 82805; 82962; 83605; 83735; 83880; 84443; 84484; 85027; 85610; 85730; 87040; 87502; 93005; 96365; 96375; 96376; 99285; 99292; J0330; J1940; J2930; J3370; J3490

== ENCOUNTER 2019-10-16 03:30 | Inpatient (IN) | payer OTHER ==
[2019-10-16] VITALS (32 sets, daily range): BP systolic 103–159; BP diastolic 52–87; TEMP 97–100.9; Ht 165.1 cm; Wt 90.8 kg
[~2019-10-16] VITALS: Ht 165.1 cm; Wt 90.8 kg
[2019-10-17] VITALS (16 sets, daily range): BP systolic 102–166; BP diastolic 50–98; TEMP 98–98.8
[2019-10-17 05:33] LABS: PLATELET COUNT 178 K/uL (152-353)
[2019-10-18] VITALS: BP 117/69; TEMP 98.6
[2019-10-18 04:00] VITALS: BP 120/69; TEMP 98.1
[2019-10-18 08:00] VITALS: BP 121/74; TEMP 98.1
[2019-10-18 12:00] VITALS: BP 121/61; TEMP 98.1
[2019-10-18 14:41] LABS: PLATELET COUNT 194 K/uL (152-353)
[2019-10-18 14:55] LABS: POTASSIUM 4.1 mmol/L (3.6-5.2)
[2019-10-18 16:00] VITALS: BP 105/60; TEMP 98.7
== END 2019-10-18 16:25 | disposition short-term general hospital (02) | DRG 208 ==
LOC: MED/SURG 03:30 → ICU 03:30 → MED/SURG 10-17 00:08
PROVIDERS: Internal Medicine; ADMIT Student in an Organized Health Care Education/Training Program
PROC: 5A1935Z Respiratory Ventilation, Less than 24 Consecutive Hours (ICD-10-PCS; principal; 2019-10-16)
PROC: 0BH17EZ Insertion of Endotracheal Airway into Trachea, Via Natural or Artificial Opening (ICD-10-PCS; 2019-10-16)
DX: J96.01 Acute respiratory failure with hypoxia (principal); I50.21 Acute systolic (congestive) heart failure; J44.1 Chronic obstructive pulmonary disease with (acute) exacerbation; E11.9 Type 2 diabetes mellitus without complications; I11.0 Hypertensive heart disease with heart failure
CPT/HCPCS: 36415; 36600; 80053; 82550; 82805; 84484; 85027; 93005; 94003; 94640; 94660; 94664; 94760; J0132; J0330; J1650; J1815; J1940; J1956; J2250; J2270; J2405; J2550; J2920; J3490

== ENCOUNTER 2019-10-18 16:31 | Outpatient (CLI) | payer OTHER | END 2019-10-18 17:38 | disposition short-term general hospital (02) | LOC: AMB 16:31 | DX: R94.31 Abnormal electrocardiogram [ECG] [EKG] (principal); R07.89 Other chest pain; J96.01 Acute respiratory failure with hypoxia | CPT/HCPCS: A0425; A0427 ==

== ENCOUNTER 2019-10-21 19:20 | Emergency (ER) | payer OTHER ==
[~2019-10-21] VITALS: Ht 160 cm; Wt 80.7 kg
[2019-10-21 19:24] VITALS: BP 138/721; TEMP 98.6
[2019-10-21 19:57] LABS: PLATELET COUNT 273 K/uL (152-353)
[2019-10-21 20:07] LABS: POTASSIUM 4.2 mmol/L (3.6-5.2)
== END 2019-10-21 19:55 | disposition home or self-care (01) ==
LOC: ED 19:20
PROVIDERS: Emergency Medicine
DX: J44.1 Chronic obstructive pulmonary disease with (acute) exacerbation (principal)
CPT/HCPCS: 36415; 80053; 82805; 83735; 84484; 85027; 94664; 99283

== ENCOUNTER 2019-10-21 22:49 | Outpatient (CLI) | payer OTHER | END 2019-10-21 22:54 | disposition short-term general hospital (02) | LOC: AMB 22:49 | DX: R06.02 Shortness of breath (principal); R07.89 Other chest pain; R06.2 Wheezing; R00.0 Tachycardia, unspecified | CPT/HCPCS: A0425; A0427 ==

== ENCOUNTER 2019-10-22 00:05 | Outpatient (CLI) | payer OTHER | END 2019-10-22 01:10 | disposition short-term general hospital (02) | LOC: AMB 00:05 | DX: R06.02 Shortness of breath (principal); R00.0 Tachycardia, unspecified; J44.1 Chronic obstructive pulmonary disease with (acute) exacerbation | CPT/HCPCS: A0425; A0427 ==

== ENCOUNTER 2020-04-03 14:41 | Emergency (ER) | payer OTHER ==
[~2020-04-03] VITALS: Ht 160 cm; Wt 80.7 kg
[2020-04-03 14:53] VITALS: TEMP 97.8
[2020-04-03 15:18] VITALS: BP 145/77
[2020-04-03 15:20] LABS: PLATELET COUNT 212 K/uL (152-353)
[2020-04-03 15:26] LABS: POTASSIUM 4.8 mmol/L (3.6-5.2); SODIUM 141 mmol/L (136-145)
== END 2020-04-03 15:50 | disposition home or self-care (01) ==
LOC: ED 14:41
PROVIDERS: Family Medicine
DX: R06.09 Other forms of dyspnea (principal); R05 Cough
CPT/HCPCS: 80053; 81000; 83880; 84484; 85027; 93005; 99283; J1940

== ENCOUNTER 2020-04-05 14:05 | Emergency (ER) | payer OTHER ==
[~2020-04-05] VITALS: Ht 160 cm; Wt 80.7 kg
[2020-04-05 14:26] LABS: PLATELET COUNT 211 K/uL (152-353)
[2020-04-05 14:40] LABS: POTASSIUM 4.9 mmol/L (3.6-5.2); SODIUM 139 mmol/L (136-145)
[2020-04-05 14:48] LABS: PARTIAL THROMBOPLASTIN TIME 21.1 SECONDS (24.5-33.6)
[2020-04-05 15:35] VITALS: BP 135/75; TEMP 98.5
== END 2020-04-05 15:35 | disposition home or self-care (01) ==
LOC: ED 14:10
PROVIDERS: Hospitalist
DX: J44.1 Chronic obstructive pulmonary disease with (acute) exacerbation (principal); I50.9 Heart failure, unspecified; F17.210 Nicotine dependence, cigarettes, uncomplicated
CPT/HCPCS: 80053; 82550; 83880; 84484; 85027; 85610; 85730; 93005; 94664; 96374; 99284; J1940; J2930

== ENCOUNTER 2020-04-16 02:42 | Emergency (ER) | payer OTHER ==
[~2020-04-16] VITALS: Ht 160 cm; Wt 80.7 kg
[2020-04-16 03:29] LABS: PLATELET COUNT 216 K/uL (152-353)
[2020-04-16 03:34] LABS: SODIUM 142 mmol/L (136-145)
[2020-04-16 06:00] VITALS: BP 148/88; TEMP 98.4
== END 2020-04-16 06:00 | disposition home or self-care (01) ==
LOC: ED 02:42
PROVIDERS: Emergency Medicine
DX: J44.1 Chronic obstructive pulmonary disease with (acute) exacerbation (principal); R06.02 Shortness of breath; R06.2 Wheezing; I51.7 Cardiomegaly; I50.9 Heart failure, unspecified
CPT/HCPCS: 36415; 80053; 80307; 82553; 83880; 84484; 85027; 87635; 93005; 94664; 96374; 96375; 99284; J1940; J2930; U00003

== ENCOUNTER 2020-04-27 13:19 | Emergency (ER) | payer OTHER ==
[~2020-04-27] VITALS: Ht 160 cm; Wt 80.7 kg
[2020-04-27 13:23] VITALS: TEMP 98.3
[2020-04-27 14:23] VITALS: BP 150/91
[2020-04-27 14:28] LABS: POTASSIUM 4.4 mmol/L (3.6-5.2); SODIUM 140 mmol/L (136-145)
[2020-04-27 14:30] LABS: PLATELET COUNT 182 K/uL (152-353)
== END 2020-04-27 15:17 | disposition home or self-care (01) ==
LOC: ED 13:19
PROVIDERS: Emergency Medicine Emergency Medical Services
DX: J44.1 Chronic obstructive pulmonary disease with (acute) exacerbation (principal); I50.9 Heart failure, unspecified; F17.210 Nicotine dependence, cigarettes, uncomplicated
CPT/HCPCS: 80053; 83880; 84484; 85027; 94664; 96374; 96375; 99284; J1100; J1940

== ENCOUNTER 2020-05-12 08:18 | Emergency (ER) | payer OTHER ==
[~2020-05-12] VITALS: Ht 160 cm; Wt 117.9 kg
[2020-05-12 08:23] VITALS: TEMP 97.8
[2020-05-12 08:54] LABS: PLATELET COUNT 198 K/uL (152-353)
[2020-05-12 08:55] LABS: POTASSIUM 4.9 mmol/L (3.6-5.2); SODIUM 140 mmol/L (136-145)
[2020-05-12 10:32] VITALS: BP 167/83
== END 2020-05-12 11:09 | disposition home or self-care (01) ==
LOC: ED 08:18
PROVIDERS: Family Medicine
DX: J44.1 Chronic obstructive pulmonary disease with (acute) exacerbation (principal); I10 Essential (primary) hypertension; F17.210 Nicotine dependence, cigarettes, uncomplicated
CPT/HCPCS: 80053; 81000; 83880; 84484; 85027; 93005; 94640; 94664; 96374; 96375; 96376; 99284; J0360; J2930

== ENCOUNTER 2020-06-16 14:33 | Emergency (ER) | payer OTHER ==
[~2020-06-16] VITALS: Ht 160 cm; Wt 117.9 kg
[2020-06-16 14:33] VITALS: TEMP 97.7
[2020-06-16 15:00] VITALS: BP 130/97
== END 2020-06-16 15:20 | disposition home or self-care (01) ==
LOC: ED 14:36
DX: J44.1 Chronic obstructive pulmonary disease with (acute) exacerbation (principal)
CPT/HCPCS: 99283

== ENCOUNTER 2020-12-16 07:17 | Emergency (ER) | payer OTHER ==
[~2020-12-16] VITALS: Ht 165.1 cm; Wt 77.1 kg
[2020-12-16 07:23] VITALS: BP 138/112; TEMP 97
== END 2020-12-16 07:30 | disposition home or self-care (01) ==
LOC: ED 07:17
DX: I50.9 Heart failure, unspecified (principal); R06.09 Other forms of dyspnea
CPT/HCPCS: 93005; 99281

== ENCOUNTER 2021-01-11 23:46 | Emergency (ER) | payer OTHER ==
[~2021-01-11] VITALS: Ht 165.1 cm; Wt 80.7 kg
[2021-01-11 23:46] VITALS: TEMP 98.1
[2021-01-12] MEDS ORDERED: SPIRONOLACT25 MG PO (00:30)
[2021-01-12] MEDS ORDERED: LIPITOR40 MG PO (00:30)
[2021-01-12] MEDS ORDERED: LIPITOR80 MG PO (00:31)
[2021-01-12] MEDS ORDERED: PANTOPRAZOLE 40MG TA PO (00:31)
[2021-01-12] MEDS ORDERED: ALPR0.5T24 PO (00:31)
[2021-01-12] MEDS ORDERED: CARV3.12 PO (00:31)
[2021-01-12] MEDS ORDERED: ALBU0.0813 INH (00:32)
[2021-01-12] MEDS ORDERED: CLOPIDOGREL75 MG PO (00:33)
[2021-01-12 01:08] LABS: PLATELET COUNT 272 K/uL (152-353)
[2021-01-12 01:14] LABS: POTASSIUM 4.7 mmol/L (3.6-5.2)
[2021-01-12 01:41] VITALS: BP 159/114
== END 2021-01-12 01:41 | disposition home or self-care (01) ==
LOC: ED 23:53
PROVIDERS: Emergency Medicine Emergency Medical Services
DX: R07.89 Other chest pain (principal); I50.9 Heart failure, unspecified; R77.8 Other specified abnormalities of plasma proteins; J44.9 Chronic obstructive pulmonary disease, unspecified; Z20.822 Contact with and (suspected) exposure to COVID-19; F17.210 Nicotine dependence, cigarettes, uncomplicated
CPT/HCPCS: 36415; 80053; 83735; 83880; 84484; 85027; 85610; 87040; 87635; 93005; 96365; 96375; 99284; J0696; J1940; U0003

== ENCOUNTER 2021-01-12 10:12 | Emergency (ER) | payer OTHER ==
[~2021-01-12] VITALS: Ht 165.1 cm; Wt 80.7 kg
[~2021-01-12 10:12] MED LIST changes: +ALBU0.0813 INH; +ALPR0.5T24 PO; +CARV3.12 PO; +CLOPIDOGREL75 MG PO; +LIPITOR40 MG PO; +LIPITOR80 MG PO; +PANTOPRAZOLE 40MG TA PO; +SPIRONOLACT25 MG PO
[2021-01-12 10:59] LABS: PLATELET COUNT 207 K/uL (152-353)
[2021-01-12 11:16] LABS: POTASSIUM 4.4 mmol/L (3.6-5.2)
[2021-01-12 14:45] VITALS: BP 149/87; TEMP 97.6
== END 2021-01-12 14:45 | disposition short-term general hospital (02) ==
LOC: ED 10:12
PROVIDERS: Family Medicine
DX: R07.89 Other chest pain (principal); I50.9 Heart failure, unspecified; J44.9 Chronic obstructive pulmonary disease, unspecified; R74.8 Abnormal levels of other serum enzymes; F17.210 Nicotine dependence, cigarettes, uncomplicated
CPT/HCPCS: 36600; 80053; 82550; 82805; 83880; 84484; 85027; 93005; 96372; 99284; J2930

== ENCOUNTER 2021-02-02 00:07 | Inpatient (IN) | payer OTHER ==
[~2021-02-02] VITALS: Ht 165.1 cm; Wt 93.5 kg
[2021-02-02] VITALS (12 sets, daily range): BP systolic 111–159; BP diastolic 50–111; TEMP 98.1–98.3; Ht 165.1 cm; Wt 93.5 kg
[2021-02-02 01:32] LABS: PLATELET COUNT 172 K/uL (152-353)
[2021-02-02 02:53] LABS: PARTIAL THROMBOPLASTIN TIME 21.1 SECONDS (24.5-33.6)
--- NOTE | 2021-02-02 06:17 | NUR ---
02/02/21 0315: PT ARRIVED BY WHEELCHAIR FROM ER. PT HAS O2@2LNC. IV ANTIBIOTIC INFUSING INTO 22G LEFT AC. PT HAS A RBKA. PT REFUSED RICHARD TO BE PLACED IN ER. PT VERY DROWZY, BED ALARM SET.
--- NOTE | 2021-02-02 09:40 | NUR ---
PATIENT CALLED BROTHER AND REQUESTED HE BRING PERSONAL TRILOGY TO HOSPITAL.
--- NOTE | 2021-02-02 10:55 | NUR ---
BROTHER BROUGHT PATIENT'S TRILOGY MACHINE TO HOSPITAL. RESPIRATORY DEPT NOTIFIED OF SAME. RESPIRATORY AT BEDSIDE ASSESSING TRILOGY.
--- NOTE | 2021-02-02 13:15 | NUR ---
PATIENT PLACED ON TRILOGY MACHINE AND MORE ALERT AT THIS TIME.
[2021-02-02] MEDS ORDERED: FURO40TA93 PO (16:24)
[2021-02-02] MEDS ORDERED: METOPROLOL25 M1 PO (16:26)
[2021-02-02] MEDS ORDERED: CARAFATE1 GM PO (16:27)
[2021-02-02] MEDS ORDERED: GLIP10TA55 PO (16:29)
[2021-02-02] MEDS ORDERED: SPIRIVA HANDIH18 MCG INH (16:30)
[2021-02-02] MEDS ORDERED: PROAIR HFA108 MCG/AC INH (16:31)
[2021-02-02] MEDS ORDERED: ALBUTEROL0.083 % INH (16:33)
[2021-02-02] MEDS ORDERED: COZAAR25 MG PO (16:36)
[2021-02-02] MEDS ORDERED: CARV6.25 PO (16:36)
--- NOTE | 2021-02-03 03:19 | NUR ---
PT HAS RESTED WELL THIS SHIFT. C-PAP HAS BEEN IN USE. NO COMPLAINTS VOICED. DENIES PAIN AT THIS TIME. NO RESPIRATORY DISTRESS NOTED.
[2021-02-03 04:00] VITALS: BP 104/52; TEMP 97.6
[2021-02-03 05:47] LABS: POTASSIUM 3.8 mmol/L (3.6-5.2)
[2021-02-03 08:00] VITALS: BP 130/70; TEMP 98.5
--- NOTE | 2021-02-03 08:00 | NUR ---
PT STATES THAT SHE IS EXPERIENCING PAIN IN THE RIGHT LEG WHERE HER LEG WAS AMPUTATED. IT IS RED AND WARM TO THE TOUCH. PRN HYDROCODONE HAS BEEN GIVEN AND WILL BE REASSESSED.
--- NOTE | 2021-02-03 08:05 | NUR ---
RT COMPLETED NEB TX AT THIS TIME. PT STATES SHE HAS A HEADACHE AND WOULD LIKE FOR ME TO RELAY THAT TO NURSE. HEAT TREAT SUPERVISOR INFORMED NURSE OF PT COMPLAINT.
--- NOTE | 2021-02-03 09:28 | NUR ---
0930 PT NOTED TO BE AFLUTTER ON TEL WITH RATE OF 96. PT HAS NO CO OR NO DISTRESS NOTED AT THIS TIME. DR SMITH INFOMRED. NO NEW ORDERS REC'D AT THIS TIME. WILL CONT TO MONITOR.
--- NOTE | 2021-02-03 10:55 | NUR ---
PT CALLED WINDOW SHADE CLOTH SEWER TO HER ROOM TO SHOW WINDOW SHADE CLOTH SEWER THAT THERE IS A SMALL HOLE TO THE INCISION WHERE THE RIGHT BKA TOOK PLACE. THERE IS SOME SLIGHT DRAINAGE FROM THE HOLE. DR. SMITH HAS BEEN CONTACTED AND AGREED TO A WOUND CULTURE AND FOR THE HOLE TO BE COVERED BY A BANDAGE. NO OTHER ORDERS TO WINDOW SHADE CLOTH SEWER AT THIS TIME.
[2021-02-03 12:00] VITALS: BP 111/48; TEMP 97.7
--- NOTE | 2021-02-03 13:10 | NUR ---
Received call from Winsome Florez RN @ [facility] [phone], she asked that we please notify them when pt discharges if she wishes to resume services.
--- NOTE | 2021-02-03 15:28 | NUR ---
SPO2 AT 96% AT 2LPM NC.
[2021-02-03 15:54] VITALS: BP 120/66; TEMP 98.4
[2021-02-03 20:03] VITALS: BP 99/56; TEMP 98.5
--- NOTE | 2021-02-03 20:10 | NUR ---
PT ALERT AND ORIENTED SITTING UP IN BED WATCHING TV WITH NO S/S OF ACUTE DISTRESS NOTED, RESP RATE NONLABORED, O2 AT 2LPM VIA NC, 22G IV LOCK INTACT TO L SHOULDER AREA, TELEMETRY IN USE. C/O "THROBBING, STINGING" PAIN THAT IS AN "8" TO R BKA(NOTE AREA RED), GAVE NORCO PO PRN FOR PAIN. WILL MONITOR CLOSELY, RAILS UP, BED IN LOW POSITION, CALL LIGHT IN REACH, ENCOURAGED TO CALL NEEDED, PT ACKNOWLEDGES UNDERSTANDING.
--- NOTE | 2021-02-03 20:50 | NUR ---
PT AWAKE WATCHING TV WITH NO S/S OF ACUTE DISTRESS NOTED, RESP RATE NONLABORED, O2 AT 2LPM VIA NC, TELEMETRY IN USE WITH RATE IN HIGH 90s TO 105, 22G IV LOCK INTACT TO L SHOULDER WITH NO PROBLEMS NOTED TO SITE. PT TALKATIVE WITH HYDROGRAPHY TEACHER, STATES HER PAIN IS NOW A TOLERABLE "6" SINCE PRN MEDICATION GIVEN. GAVE NIGHTLY MEDICATIONS AND ALSO COVERED BLOOD SUGAR WITH SSI PRN FOR FSBS OF 288 GAVE 6 UNITS SQ TO R UPPER ARM. ENCOURAGED TO CALL NEEDED, RAILS UP, BED IN LOW POSITION, CALL LIGHT IN REACH, WILL MONITOR.
[2021-02-04] VITALS: BP 103/81; TEMP 98.1
--- NOTE | 2021-02-04 00:22 | NUR ---
PT AWAKE WATCHING TV WITH NO S/S OF PAIN OR DISTRESS NOTED, RESP RATE NONLABORED, IV LOCK INTACT TO Rhina PELLETIER, TELEMETRY IN USE IRREGULAR RATE. HOME TRILOGY MACHINE IN USE BUT PT STATES SHE CAN NOT TOLERATED IT TONIGHT AND RECORDING CLERK PLACED PT BACK ON O2 AT 2LPM VIA NC PER PT REQUEST(NOTIFIED RESPIRATORY). GAVE MEDICATIONS SEEN ON NOV, ALSO GAVE XANAX 0.5MG PO PRN PER PT REQUEST. GOOD BLOOD RETURN NOTED TO 22G IV LOCK IN L UPPER ARM/SHOULDER AREA BUT PT STATES THE IV ANTIBIOTIC WAN, DECREASED RATE AND PT STATES IT NO LONGER WAN. SITE FLUSHED EASILY WITH 10ML NS. WILL MONITOR SITE CLOSELY. ENCOURAGED TO CALL NEEDED, RAILS UP, BED IN LOW POSITION, CALL LIGHT IN REACH. PT TALKATIVE WITH RECORDING CLERK.
--- NOTE | 2021-02-04 00:55 | NUR ---
REMAINS AWAKE WATCHING TV WITH NO S/S OF ACUTE DISTRESS NOTED, WILL MONITOR, RAILS UP, BED IN LOW POSITION, CALL LIGHT IN REACH.
--- NOTE | 2021-02-04 02:30 | NUR ---
IV ANTIBIOTIC DOXYCYCLINE STILL INFUSING DUE TO GROUNDS PERSON HAD TO DECREASE RATE BURNING PT NOTED EARLIER IN A NOTE(MEDICATION ALMOST FINISHED INFUSING AND THEN WILL HANG LEVAQUIN IV). PT RESTING WITH EYES CLOSED, NO ACUTE DISTRESS NOTED, WILL MONITOR.
--- NOTE | 2021-02-04 03:10 | NUR ---
0300 ENTERED ROOM TO IV PUMP BEEPING THAT IV ANTIBIOTIC IS FINISHED, FLUSHED IV SITE WITH NS PT STATES IT IS TENDER BUT BOX FABRICATOR OBSERVED GOOD BLOOD RETURN TO SITE ALONG WITH NO SWELLING OR OTHER PROBLEMS TO SITE. PT STATES SITE IS NO LONGER BOTHERING HER. NOTE PT'S SKIN APPEARS RED(WAS LITTLE RED EARLIER IN SHIFT BUT WORSE NOW AND PT DID MENTION ITCHING EARLIER IN SHIFT BUT DID NOT NEED ANYTHING FOR IT) NOTE PT ALSO ITCHING VERY OFTEN BOX FABRICATOR IS AT BEDSIDE, PT STATES SHE IS HOT. ADJUSTED AC IN ROOM. WHEN ASKED ABOUT ALLERGIES PT STATES SHE IS NOT ALLERGIC TO ANYTHING BUT THE ITCHING COULD BE FROM HER BROTHER POSSIBLY CHANGING DETERGANT THAT HE WASHES HER CLOTHES IN OR IT COULD POSSIBLY BE FROM DOXYCYCLINE(BOX FABRICATOR ASKED IF PT THOUGHT ITCHING WAS FROM MEDICATION STATES SHE THINKS AFTER FIRST DOSE OF DOXYCYCLINE SHE STARTED ITCHING BUT IS UNSURE). BOX FABRICATOR SPOKE WITH CHARGE NURSE AND RETURNED TO FIND PT STILL HAVING SOME ITCHING. INFORMED PT THAT BOX FABRICATOR WOULD CONTACT TIMUR SWAIN
--- NOTE | 2021-02-04 03:30 | NUR ---
SPOKE WITH DR. MANCILLA( IN ER) ABOUT PT'S CURRENT ITCHING/REDNESS AND POSSIBLE REACTION TO MEDICATION BUT UNABLE TO KNOW FOR SURE. TOLD DR SITUATION CHARTED IN PREVIOUS NOTE. NEW TELEPHONE ORDER FOR BENADRYL 25MG PO X 1 DOSE NOW FOR ITCHING. T.O. R&V DR. MANCILLA/ANEESH GANDHI RN. WILL MONITOR PT CLOSELY AND PASS ALONG TO DAY SHIFT TO TELL THIS MORNING WHEN MAKES ROUNDS.
[2021-02-04 04:00] VITALS: BP 126/73; TEMP 97.9
--- NOTE | 2021-02-04 04:18 | NUR ---
STILL WAITING ON PHARM-D TO PUT IN NEW ORDER FOR ASIA FAXED TWICE BY RUBBER LINER.
--- NOTE | 2021-02-04 04:32 | NUR ---
PT FOUND RESTING WITH EYES CLOSED, NO ITCHING NOTED AT THIS TIME AND PT'S SKIN SEEMS LESS RED. GAVE BENADRYL 25MG PO X 1 DOSE AT THIS TIME(NOTE MED JUST PUT IN BY PHARM-D) FOR ANY ITCHING NOTED IN A PREVIOUS NOTE. PT DID AROUSE TO SPECIALTY FINISHING UTILITY PERSON CALLING HER NAME AND DENIES ANY PROBLEMS, STATES LEVAQUIN DID NOT BOTHER HER WHILE SHE GOT IT VIA IV. 22G IV TO L SHOULDER AREA REMAINS INTACT, RESP RATE NONLABORED, O2 AT 2LPM VIA NC. WILL MONITOR CLOSELY, RAILS UP, BED IN LOW POSITION, CALL LIGHT IN REACH.
[2021-02-04 05:04] LABS: PLATELET COUNT 166 K/uL (152-353)
[2021-02-04 05:27] LABS: POTASSIUM 4.2 mmol/L (3.6-5.2)
--- NOTE | 2021-02-04 05:50 | NUR ---
RESTING IN POSITION OF COMFORT WITH EYES CLOSED, NO S/S OF PAIN OR DISTRESS NOTED, RESP RATE NONLABORED, O2 AT 2LPM VIA NC, TELEMETRY IN USE, IV LOCK INTACT, WILL MONITOR CLOSELY, RAILS UP, BED IN LOW POSITION, CALL LIGHT IN REACH.
[2021-02-04 08:00] VITALS: BP 129/83; TEMP 98.3
--- NOTE | 2021-02-04 10:15 | NUR ---
EVARISTO CALLED RT STATING PT IS LETHARGIC. RT WENT TO ASSESS PT. PT WAS SLEEPING. PT ALSO HAD BENADRYL THIS MORING. PT DID NOT WEAR TRIOLOGY ALL NIGHT. RT PLACED TRIOLOGY ON PT WITH 2LPM BLED IN LINE TO HELP BLOW OFF CO2. WILL CONTINUE TO MONITOR.
--- NOTE | 2021-02-04 10:40 | NUR ---
DURING AM ASSESSMENT, PT CONFIRMED SHE HAS NOT HAD A BOWEL MOVEMENT SINCE 01/30/21 AND C/O OF NERVE PAIN TO RIGHT BKA. NOTIFIED DR. SMITH OF SAME, RECEIVED NEW ORDERS FOR MIRALAX AND GABAPENTIN, NOTED AND CARRIED OUT.
--- NOTE | 2021-02-04 11:47 | NUR ---
UPON RT ARRIVAL TO ADMINISTER NEB TX, PT HAD TAKEN OFF NASAL PILLOWS CONNECTED TO TRILOGY. PT SITTING UP ON SIDE OF THE BED. PT DID NOT HAVE NC ON. NURSE AT BEDSIDE. PT COMPLAINT OF THE PRESSURE BEING TOO MUCH. AND DRYING HER NOSE OUT AND GIVING HEADACHES. RT DISCUSSED WITH NURSE AND PT THAT WE ARE NOT ALLOWED TO ADJUST PRESSURE. PT WOULD HAVE TO GET [facility] CON[facility]CT WITH [facility] THAT SUPPLIED EQUIPMENT. RT ALSO SUGGESTED ASKING [facility] IF IT IS POSSIBLE TO ADD A HUMIDIER TO TRILOGY TO HELP WITH DRYING NOSE OUT. NC PLACED BACK ON PT POST NEB TX.
[2021-02-04 12:00] VITALS: BP 138/82; TEMP 98.2
--- NOTE | 2021-02-04 15:30 | NUR ---
DR SMITH INFORMED OF PT'S REQUEST TO HAVE PICC LINE OR RENETTA-CATH PLACED AND HER REFUSAL FOR ANOTHER IV. IV SITE WNL UPON INSPECTION BUT PT CO OF PAIN WITH IV MEDS EARLIER THIS SHIFT. DR SMITH STATED THAT PICC LINE NOR PORTCATH WAS NEEDED AT THIS TIME. WILL INFOMR PT. DR SMITH INSTRUCTED NURSE TO LET HIM KNOW IF PT STILL REFUSED FOR IV TO BE CHANGED AND HE WOULD CHANGE ABX TO PO
--- NOTE | 2021-02-04 15:55 | NUR ---
SPOKE WITH PT AND INFORMED HER THAT HE DID NOT THINK THAT HE NEEDED A PICC LINE OR PORT . EXPLAINED HE WOULD CHANGE HER MEDS TO PO SINCE SHE WAS REFUSING ANOHTER HL AT THIS TIME.
[2021-02-04 16:00] VITALS: BP 123/70; TEMP 98.2
--- NOTE | 2021-02-04 16:18 | NUR ---
DR SMITH INFOMRED THAT PT'S 1600 BLOOD SUGAR WAS 414. INFORMED HIM THAT STAT GLUCOSE PUT IN SYSTEM WAITING FOR LAB TO COME OBTAIN BLOOD. PER DR SMITH GIVE PT 10 UNITS OF ORDERED INSULIN AND REPEAT IN 1 HR.
--- NOTE | 2021-02-04 17:44 | NUR ---
02/04/21 1710 SALINE LOCK TO LEFT SHOULDER TOOK OUT APPLIED 2X2 SECURED WITH TAPE PT C/O TENDERNESS.CC
--- NOTE | 2021-02-04 18:04 | NUR ---
02/04/21 1800 RESTING ON LT SIDE DROWSY EASILY AROUSES.NAD NOTED.CC
[2021-02-04 20:00] VITALS: BP 141/82; TEMP 98.7
--- NOTE | 2021-02-04 20:35 | NUR ---
PT AWAKE, ALERT, AND ORIENTED SITTING UP IN BED WATCHING TV. STATES SHE HAS BEEN GROGGY ALL DAY DUE TO BENADRYL GIVEN BY POLITICAL SCIENCE INSTRUCTOR AT 0430(PREVIOUS NIGHT'S SHIFT), REMINDED PT THAT SHE DID NOT SLEEP MUCH LAST NIGHT AND PT AGREED. RESP RATE NONLABORED, O2 AT 2LPM VIA NC, TELEMETRY IN USE WITH RATE HIGH 90s to 105, LUNGS DIMINISHED WITH EXPIRATORY WHEEZING NOTED ON R SIDE NOTE PT ALSO DID NOT WEAR HER HOME TRILOGY LAST NIGHT STATING IT WAS IRRITATING AND TOO MUCH PRESSURE, RADIAL PULSES INTACT, NO IV SITE DUE TO PT DID NOT WANT ANOTHER SITE STARTED ON HI. PT TALKATIVE WITH POLITICAL SCIENCE INSTRUCTOR AND NIGHTLY MEDICATION GIVEN PT EDUCATED ABOUT NEW MEDS, ALSO GAVE XANAX 0.5MG PO PRN PER PT REQUEST. STATE SHE IS GOING TO TRY TO SLEEP NOW. REDNESS NOTED TO R BKA AND L LOWER LEG. ENCOURAGED TO CALL NEEDED, RAILS UP, BED IN LOW POSITION, CALL LIGHT IN REACH.
--- NOTE | 2021-02-04 21:05 | NUR ---
AWAKE LAYING IN BED WITH NO DISTRESS NOTED, WILL MONITOR.
[2021-02-05 00:11] VITALS: BP 139/77; TEMP 98.3
--- NOTE | 2021-02-05 00:16 | NUR ---
PT ALERT AND ORIENTED LAYING IN BED WITH O2 IN USE VIA NC, TELEMETRY IN USE. C/O "THROBBING" PAIN TO R BKA THAT IS A "9" ON SCALE, GAVE NORCO PO PRN FOR PAIN PER PT REQUEST. WILL MONITOR CLOSELY, RAILS UP, BED IN LOW POSITION, CALL LIGHT IN REACH.
--- NOTE | 2021-02-05 01:00 | NUR ---
RESTING WITH EYES CLOSED, NO S/S OF PAIN OR DISTRESS NOTED, O2 IN USE, TELEMETRY IN USE, WILL MONITOR, NO S/S OF REACTION NOTED TO PRN PAIN MED, RAILS UP, BED IN LOW POSITION.
--- NOTE | 2021-02-05 03:12 | NUR ---
PT RESTING IN POSITION OF COMFORT WITH EYES CLOSED, NO S/S OF PAIN OR DISTRESS NOTED, O2 IN USE, TELEMETRY IN USE, WILL MONITOR, RAILS UP, BED IN LOW POSITION, CALL LIGHT IN REACH.
[2021-02-05 04:00] VITALS: BP 127/79; TEMP 98.1
--- NOTE | 2021-02-05 05:05 | NUR ---
RESTING IN BED WITH EYES CLOSED, NO S/S OF PAIN OR DISTRESS NOTED, O2 AT 2LPM VIA NC, WILL MONITOR, RAILS UP, BED IN LOW POSITION.
[2021-02-05 05:42] LABS: PLATELET COUNT 185 K/uL (152-353)
--- NOTE | 2021-02-05 05:52 | NUR ---
GAVE NORCO 5/325MG PO PRN PER PT REQUEST FOR THROBBING PAIN TO R BKA THAT IS A '9" ON SCALE,, WILL MONITOR CLOSELY, RAILS UP, BED IN LOW POSITION, CALL LIGHT IN REACH.
[2021-02-05 05:54] LABS: POTASSIUM 4.6 mmol/L (3.6-5.2)
--- NOTE | 2021-02-05 06:35 | NUR ---
RESTING WITH EYES CLOSED, NO S/S OF PAIN OR DISTRESS NOTED.
[2021-02-05 08:19] VITALS: BP 122/79; TEMP 97.7
--- NOTE | 2021-02-05 09:50 | NUR ---
PROVIDED PATIENT WITH DISCHARGE INSTRUCTIONS ALONG WITH RX AND FOLLOW UP APPT WITH RADHA DILLON NP. PATIENT V/O UNDERSTANDING AND DENIES ANY FURTHER NEEDS OR C/O AT THIS TIME. PATIENT TAKEN TO POV VIA WHEELCHAIR ALONG WITH PT'S TRILOGY AND ASSISTED PT TO POV WITHOUT DIFFICULTY. NAD NOTED WITH PATIENT AT THIS TIME.
== END 2021-02-05 09:55 | disposition home or self-care (01) | DRG 191 ==
LOC: ED 00:07 → MED/SURG 02:30
PROVIDERS: Hospitalist; Internal Medicine Endocrinology, Diabetes & Metabolism; ADMIT Internal Medicine; ATTEND Internal Medicine
DX: J44.1 Chronic obstructive pulmonary disease with (acute) exacerbation (principal); L03.116 Cellulitis of left lower limb; L03.115 Cellulitis of right lower limb; Z89.512 Acquired absence of left leg below knee; Z89.511 Acquired absence of right leg below knee; I25.10 Atherosclerotic heart disease of native coronary artery without angina pectoris; I25.2 Old myocardial infarction; E11.9 Type 2 diabetes mellitus without complications; I11.0 Hypertensive heart disease with heart failure; I50.9 Heart failure, unspecified; Z72.0 Tobacco use
CPT/HCPCS: 36415; 36600; 80048; 80053; 82550; 82805; 83605; 83735; 83874; 83880; 84484; 85027; 85610; 85730; 87040; 87070; 87205; 87635; 93005; 94640; 94664; 94760; 96365; 96375; 99284; J0360; J0456; J1650; J1815; J1940; J1956; J2920; J2930; J3490; U0003

== ENCOUNTER 2021-03-03 12:23 | Emergency (ER) | payer OTHER ==
[~2021-03-03] VITALS: Ht 160 cm; Wt 80.7 kg
[2021-03-03 12:23] VITALS: TEMP 97.2
[~2021-03-03 12:23] MED LIST changes: +ALBUTEROL0.083 % INH; +CARAFATE1 GM PO; +CARV6.25 PO; +COZAAR25 MG PO; +METOPROLOL25 M1 PO; +PROAIR HFA108 MCG/AC INH; +SPIRIVA HANDIH18 MCG INH
[2021-03-03 13:09] LABS: PLATELET COUNT 177 K/uL (152-353)
[2021-03-03 13:18] LABS: POTASSIUM 3.8 mmol/L (3.6-5.2); SODIUM 142 mmol/L (136-145)
[2021-03-03 14:00] VITALS: BP 170/99
== END 2021-03-03 14:25 | disposition home or self-care (01) ==
LOC: ED 12:24
PROVIDERS: Family Medicine
DX: J44.1 Chronic obstructive pulmonary disease with (acute) exacerbation (principal); F17.210 Nicotine dependence, cigarettes, uncomplicated
CPT/HCPCS: 36415; 80053; 82550; 83605; 83880; 84484; 85027; 85379; 93005; 96374; 99284; J2930

== ENCOUNTER 2021-03-09 07:23 | Inpatient (IN) | payer OTHER ==
[2021-03-21 12:26] LABS: PLATELET COUNT 202 K/uL (152-353)
[2021-03-21 12:27] LABS: POTASSIUM 3.2 mmol/L (3.6-5.2); SODIUM 142 mmol/L (136-145)
[2021-03-21 12:37] LABS: PLATELET COUNT 229 K/uL (152-353)
[2021-03-21 13:13] LABS: PLATELET COUNT 193 K/uL (152-353)
[2021-03-21 13:14] LABS: POTASSIUM 4.2 mmol/L (3.6-5.2)
[2021-03-22 07:34] LABS: PLATELET COUNT 210 K/uL (152-353)
== END 2021-03-12 17:55 | disposition short-term general hospital (02) | DRG 282 ==
LOC: ED 07:23 → MED/SURG 15:05 → PCU 15:05 → MED/SURG 15:05 → PCU 03-11 14:55
PROVIDERS: ADMIT Family Medicine; ATTEND Internal Medicine Endocrinology, Diabetes & Metabolism
DX: I11.0 Hypertensive heart disease with heart failure (principal); I21.4 Non-ST elevation (NSTEMI) myocardial infarction; I50.9 Heart failure, unspecified; J44.9 Chronic obstructive pulmonary disease, unspecified; Z89.511 Acquired absence of right leg below knee; G47.33 Obstructive sleep apnea (adult) (pediatric); F10.10 Alcohol abuse, uncomplicated; K21.9 Gastro-esophageal reflux disease without esophagitis; R06.09 Other forms of dyspnea; I25.10 Atherosclerotic heart disease of native coronary artery without angina pectoris; E11.9 Type 2 diabetes mellitus without complications; F15.10 Other stimulant abuse, uncomplicated; E87.6 Hypokalemia; I73.89 Other specified peripheral vascular diseases
CPT/HCPCS: 36415; 36600; 80048; 80053; 80307; 80320; 81000; 82550; 82805; 82948; 83880; 84484; 85027; 87086; 87088; 87635; 93005; 94640; 94660; 94664; 94760; 96360; 96372; 96375; 99220; 99284; G0378; U0003

== ENCOUNTER 2021-03-22 19:13 | Emergency (ER) | payer OTHER ==
[~2021-03-22] VITALS: Ht 160 cm; Wt 80.7 kg
[2021-03-22 19:13] VITALS: TEMP 99.5
[2021-03-22 19:38] LABS: PLATELET COUNT 209 K/uL (152-353)
[2021-03-22 20:00] VITALS: BP 144/78
[2021-03-22 20:00] LABS: PARTIAL THROMBOPLASTIN TIME 18.7 SECONDS (24.5-33.6)
[2021-03-22 20:03] LABS: POTASSIUM 4.6 mmol/L (3.6-5.2); SODIUM 143 mmol/L (136-145)
== END 2021-03-22 20:17 | disposition home or self-care (01) ==
LOC: ED 19:13
PROVIDERS: Emergency Medicine
DX: R07.89 Other chest pain (principal); I50.9 Heart failure, unspecified; J44.9 Chronic obstructive pulmonary disease, unspecified; E11.65 Type 2 diabetes mellitus with hyperglycemia; F17.210 Nicotine dependence, cigarettes, uncomplicated; Z53.29 Procedure and treatment not carried out because of patient's decision for other reasons
CPT/HCPCS: 36415; 80053; 82550; 83880; 84484; 85027; 85379; 85610; 85730; 93005; 99284

== ENCOUNTER 2021-03-23 07:20 | Emergency (ER) | payer OTHER ==
[~2021-03-23] VITALS: Ht 165.1 cm; Wt 80.7 kg
[2021-03-23 07:20] VITALS: TEMP 96
[2021-03-23 08:17] LABS: PARTIAL THROMBOPLASTIN TIME 20.8 SECONDS (24.5-33.6)
[2021-03-23 08:32] LABS: PLATELET COUNT 183 K/uL (152-353)
[2021-03-23 10:55] VITALS: BP 127/65
== END 2021-03-23 10:55 | disposition home or self-care (01) ==
LOC: ED 07:23
PROVIDERS: Emergency Medicine
DX: I50.9 Heart failure, unspecified (principal); J44.1 Chronic obstructive pulmonary disease with (acute) exacerbation; F17.210 Nicotine dependence, cigarettes, uncomplicated
CPT/HCPCS: 80048; 80307; 80320; 81000; 82550; 83735; 83880; 84484; 85027; 85379; 85610; 85730; 93005; 94664; 96372; 96374; 96375; 99284; J1940; J2405

== ENCOUNTER 2021-03-24 20:42 | Emergency (ER) | payer OTHER ==
[~2021-03-24] VITALS: Ht 165.1 cm; Wt 80.7 kg
[2021-03-24 21:18] LABS: PLATELET COUNT 272 K/uL (152-353)
[2021-03-24 21:22] LABS: POTASSIUM 4.8 mmol/L (3.6-5.2)
[2021-03-24 21:34] LABS: PARTIAL THROMBOPLASTIN TIME 22.5 SECONDS (24.5-33.6)
[2021-03-24 23:25] VITALS: BP 125/70
== END 2021-03-24 23:34 | disposition short-term general hospital (02) ==
LOC: ED 20:42
PROVIDERS: Hospitalist
DX: I21.4 Non-ST elevation (NSTEMI) myocardial infarction (principal); R07.89 Other chest pain; I50.9 Heart failure, unspecified; J44.9 Chronic obstructive pulmonary disease, unspecified; F17.210 Nicotine dependence, cigarettes, uncomplicated
CPT/HCPCS: 36415; 80053; 82550; 83880; 84484; 85027; 85610; 85730; 93005; 94664; 96374; 96375; 99284; J1940; J2270; J2405; J2930

== ENCOUNTER 2021-03-26 01:27 | Emergency (ER) | payer OTHER ==
[~2021-03-26] VITALS: Ht 165.1 cm; Wt 80.7 kg
[2021-03-26 01:40] VITALS: BP 135/77; TEMP 98.4
== END 2021-03-26 01:45 ==
LOC: ED 01:27
DX: R10.9 Unspecified abdominal pain (principal)
CPT/HCPCS: 99283

== ENCOUNTER 2021-04-08 20:05 | Emergency (ER) | payer OTHER ==
[~2021-04-08] VITALS: Ht 165.1 cm; Wt 72.6 kg
[2021-04-08 20:05] VITALS: BP 150/81; TEMP 98.2
[2021-04-08 20:45] LABS: PLATELET COUNT 162 K/uL (152-353)
[2021-04-08 21:09] LABS: POTASSIUM 4.6 mmol/L (3.6-5.2); SODIUM 144 mmol/L (136-145)
[2021-04-08 21:15] LABS: PARTIAL THROMBOPLASTIN TIME 22.5 SECONDS (24.5-33.6)
== END 2021-04-09 00:23 | disposition home or self-care (01) ==
LOC: ED 20:05
PROVIDERS: Hospitalist
DX: J44.9 Chronic obstructive pulmonary disease, unspecified (principal); I50.9 Heart failure, unspecified; J06.9 Acute upper respiratory infection, unspecified; F17.210 Nicotine dependence, cigarettes, uncomplicated; Z20.822 Contact with and (suspected) exposure to COVID-19
CPT/HCPCS: 36415; 80053; 81000; 82550; 83880; 84484; 85027; 85610; 85730; 87635; 93005; 94664; 96374; 96375; 99283; J1885; J1940; J2930; U0003

== ENCOUNTER 2021-04-10 09:53 | Emergency (ER) | payer OTHER ==
[~2021-04-10] VITALS: Ht 165.1 cm; Wt 72.6 kg
[2021-04-10 09:53] VITALS: TEMP 97.1
[2021-04-10 10:33] LABS: PLATELET COUNT 161 K/uL (152-353)
[2021-04-10 10:40] LABS: POTASSIUM 4.6 mmol/L (3.6-5.2); SODIUM 141 mmol/L (136-145)
[2021-04-10 10:51] LABS: PARTIAL THROMBOPLASTIN TIME 21.6 SECONDS (24.5-33.6)
[2021-04-10 13:30] VITALS: BP 147/83
== END 2021-04-10 13:50 | disposition home or self-care (01) ==
LOC: ED 09:53
PROVIDERS: Family Medicine
DX: I50.9 Heart failure, unspecified (principal); J44.9 Chronic obstructive pulmonary disease, unspecified; E11.9 Type 2 diabetes mellitus without complications; Z20.822 Contact with and (suspected) exposure to COVID-19; F17.210 Nicotine dependence, cigarettes, uncomplicated
CPT/HCPCS: 36415; 80053; 82550; 83880; 84484; 85027; 85379; 85610; 85730; 87635; 93005; 94664; 96367; 96374; 96375; 99284; J1100; J1940; J2930; U0003

== ENCOUNTER 2021-05-20 06:54 | Emergency (ER) | payer OTHER ==
[~2021-05-20] VITALS: Ht 165.1 cm; Wt 72.6 kg
[2021-05-20 06:59] VITALS: BP 189/92; TEMP 96.2
== END 2021-05-20 07:27 | disposition home or self-care (01) ==
LOC: ED 06:54
DX: R06.09 Other forms of dyspnea (principal); Z53.21 Procedure and treatment not carried out due to patient leaving prior to being seen by health care provider
CPT/HCPCS: 99281

== ENCOUNTER 2021-05-21 08:13 | Emergency (ER) | payer OTHER ==
[~2021-05-21] VITALS: Ht 165.1 cm; Wt 80.7 kg
[2021-05-21 08:13] VITALS: TEMP 97.4
[2021-05-21 09:24] LABS: PLATELET COUNT 253 K/uL (152-353)
[2021-05-21 09:30] VITALS: BP 130/108
[2021-05-21 09:52] LABS: POTASSIUM 5.6 mmol/L (3.6-5.2); SODIUM 138 mmol/L (136-145)
== END 2021-05-21 10:20 | disposition home or self-care (01) ==
LOC: ED 08:17
PROVIDERS: Emergency Medicine Emergency Medical Services
DX: R06.09 Other forms of dyspnea (principal); Z20.822 Contact with and (suspected) exposure to COVID-19; Z53.29 Procedure and treatment not carried out because of patient's decision for other reasons
CPT/HCPCS: 80053; 83880; 84484; 85027; 87635; 96374; 96375; 99284; J1940; J2060; J2405; U0003

== ENCOUNTER 2021-05-22 05:36 | Emergency (ER) | payer OTHER ==
[~2021-05-22] VITALS: Ht 165.1 cm; Wt 80.7 kg
[2021-05-22 06:58] LABS: PLATELET COUNT 195 K/uL (152-353)
[2021-05-22 10:07] LABS: SODIUM 133 mmol/L (136-145)
[2021-05-22 10:14] LABS: POTASSIUM 7.2 mmol/L (3.6-5.2)
[2021-05-22 11:52] VITALS: BP 172/89; TEMP 97.9
== END 2021-05-22 12:40 | disposition still patient (30) ==
LOC: ED 05:36
PROVIDERS: Emergency Medicine Emergency Medical Services
DX: R06.09 Other forms of dyspnea (principal); I50.9 Heart failure, unspecified; J44.1 Chronic obstructive pulmonary disease with (acute) exacerbation; E87.6 Hypokalemia; F17.210 Nicotine dependence, cigarettes, uncomplicated; Z53.29 Procedure and treatment not carried out because of patient's decision for other reasons
CPT/HCPCS: 80053; 82805; 83880; 84484; 85027; 93005; 96374; 96375; 99284; J1100; J1885; J1940; J2405

== ENCOUNTER 2021-05-24 16:19 | Emergency (ER) | payer OTHER ==
[~2021-05-24] VITALS: Ht 165.1 cm; Wt 80.7 kg
[2021-05-24 16:50] LABS: PLATELET COUNT 188 K/uL (152-353)
[2021-05-24 16:59] LABS: POTASSIUM 5.5 mmol/L (3.6-5.2)
[2021-05-24 17:07] LABS: PARTIAL THROMBOPLASTIN TIME 21.1 SECONDS (24.5-33.6)
[2021-05-24 19:40] VITALS: BP 144/88; TEMP 98.4
== END 2021-05-24 19:45 | disposition home or self-care (01) ==
LOC: ED 16:19
PROVIDERS: Emergency Medicine
DX: I50.9 Heart failure, unspecified (principal); J44.9 Chronic obstructive pulmonary disease, unspecified; Z91.19 Patient's noncompliance with other medical treatment and regimen; F17.210 Nicotine dependence, cigarettes, uncomplicated
CPT/HCPCS: 80053; 83880; 84484; 85027; 85379; 85610; 85730; 93005; 94640; 94664; 96374; 96376; 99284; J1940

== ENCOUNTER 2021-05-29 02:56 | Inpatient (IN) | payer OTHER ==
[~2021-05-29] VITALS: Ht 160 cm; Wt 84.4 kg
[2021-05-29] VITALS (7 sets, daily range): BP systolic 106–169; BP diastolic 73–130; TEMP 97.1–98.1
[2021-05-29 03:51] LABS: PLATELET COUNT 297 K/uL (152-353)
[2021-05-29 03:54] LABS: POTASSIUM 4.6 mmol/L (3.6-5.2)
[2021-05-29 04:05] LABS: PARTIAL THROMBOPLASTIN TIME 21.4 SECONDS (24.5-33.6)
[2021-05-29 16:21] LABS: PLATELET COUNT 158 K/uL (152-353)
[2021-05-29 16:28] LABS: POTASSIUM 3.8 mmol/L (3.6-5.2)
[2021-05-30 01:30] VITALS: TEMP 99.4
[2021-05-30 05:14] LABS: PLATELET COUNT 162 K/uL (152-353)
[2021-05-30 05:20] VITALS: TEMP 97.8
[2021-05-30 05:31] LABS: POTASSIUM 3.7 mmol/L (3.6-5.2)
[2021-05-30 07:26] VITALS: BP 144/96; TEMP 97
--- NOTE | 2021-05-30 18:33 | NUR ---
REC'D PT FROM ER VIA STRECTHER. PT TRANSFERED TO BED IN PCU1. PT ON VENT WITH FOLLOWING SETTINGS: SIMV, TV 500ML PEEP OF 5 FIO2 30%. PT HAS ET TUBE 22 AT LIP 7.5 ET TUBE. PT HAS RICHARD CATH DRAINING TO BS. RICHARD HAD BE EMPTIED PRIOR TO COMING TO PCU SMALL AMT OF URINE NOTED IN RICHARD CATH TUBING IWTH SMALL AMT OF BLOOD NOTED. PT HAS CENTRAL LINE TO RT FEMORAL WITH VERSED INFUSING VIA PUMP AT 8ML/HR AND DIPRIVAN INFUSING VIA PUMP AT 15MCG. UPON ARRIVAL TO ICU DR KOEHLER CAME BY AND NEW ORDERS REC'D TO DC NS. PT CONNECTED TO CONVEYOR ATTENDANT AND VS WNL BP 114/75, HR 108. RR 16 SATS 100%
[2021-05-30 20:00] VITALS: TEMP 98.9
[2021-05-31] VITALS: TEMP 99.9
[2021-05-31 01:30] VITALS: BP 115/70; TEMP 98.1; Ht 160 cm; Wt 84.4 kg
--- NOTE | 2021-05-31 04:26 | NUR ---
LATE ENTRY. A 16F NG TUBE WAS PLACED IN THE LEFT NARE. ASCULTATION COMPLETE. AND XRAY CONFIRMED PLACEMENT.
--- NOTE | 2021-05-31 04:34 | NUR ---
SERGIO BACON APPLIED PER ORDER
--- NOTE | 2021-05-31 04:42 | NUR ---
SHIFT ASSESSMENT COMPLETED. PATIENT HAS ULCERS TO BILATERAL LOWER EXTREMITIES. RIGHT LOWER EXTREMITY WHERE STUMP IS AT 2CM X 1.5 CM. LEFT LOWER EXTREMITY 3 CM X 1.5 CM.
[2021-05-31 05:40] LABS: PLATELET COUNT 147 K/uL (152-353)
[2021-05-31 06:11] LABS: POTASSIUM 4.2 mmol/L (3.6-5.2)
--- NOTE | 2021-05-31 11:30 | NUR ---
LEILA MASTERS RN AT PT'S BEDSIDE WITH RESPIRATORY. ART LINE TO RIGHT WRIST PLACED AT THIS TIME BY HAMILTON DEE PER MD ORDERS. WILL CON'T TO MONITOR PT.
--- NOTE | 2021-05-31 11:55 | NUR ---
SPOKE WITH PT'S BROTHER HEMANTH. UPDATE GIVEN AT THIS TIME.
--- NOTE | 2021-05-31 12:16 | NUR ---
DECREASED FIO2 FROM 30% TO 28% PATIENT SATING 99%
--- NOTE | 2021-05-31 14:40 | NUR ---
CATHIE LA OF PT NOW AWAKE OFF SEDATION. INFOMRED THAT PT'S HR WAS 120 AND I WAS STILL AWAITING RESP TO DO TRAIL. NO NEW ORDERS AT THIS TIME.
--- NOTE | 2021-05-31 14:43 | NUR ---
ATTEMPTED CPAP TRIAL WITH NURSE YOON YBARRA RN AT BEDSIDE. SPO2 DECREASED TO 73% HR 130 PLACED BACK ON SIMV SPO2 INCREASED TO 92% HR 118.
--- NOTE | 2021-05-31 14:50 | NUR ---
PT'S SEDATION RESTARTED PER MD PHILLIPS BY YOON YBARRA RN
--- NOTE | 2021-05-31 15:30 | NUR ---
DR KOEHLER HERE AT MAKING ROUNDS AT THIS TIME. HOME MED LIST OBTAINED FROM [facility] AND MEDS REVIEWED BY MD AND VERBAL ORDERS REC'D ON WHICH MEDS TO CON'T AT THIS TIME. DR VIRK CALLED [facility] AND SPOKE TO TANYA AND CONSULTED ON PT'S HOME MEDS TO WHICH COULD BE CRUSHED AND PLACED DOWN NGT.
--- NOTE | 2021-05-31 15:50 | NUR ---
PT'S DIPRIVAN DECREASED TO 15MCG/KG/MIN AT THIS TIME BY HAMILTON BATISTA
[2021-05-31 20:00] VITALS: TEMP 98.6
--- NOTE | 2021-05-31 20:30 | NUR ---
RESTING WITH EYES CLOSED, NO S/S OF PAIN OR DISTRESS NOTED, VITALS BEING MONITORED, CENTRAL LINE INTACT, RICHARD PATENT, NG TUBE INTACT TO L NARE, ART LINE INTACT TO R WRIST AREA, WILL MONITOR CLOSELY, RAILS UP, BED IN LOW POSITION.
--- NOTE | 2021-05-31 22:19 | NUR ---
SPOKE WITH REGARDING PATIENTS BLOOD PRESSURE FROM ART LINE READING 87/53 WITH MAP OF 60. STATED SHE WANTS SYSTOLIC 90 OR MAP OF 60 AND ABOVE DUE TO PATIENTS EJECTION FRACTION OF 10-15% AND CARDIOMYOPATHY.
--- NOTE | 2021-05-31 22:25 | NUR ---
PUT HEPARIN DRIP ON HOLD FOR 1 HOUR THEN WILL RESTART DRIP AT 16ML/HR(DECREASE OF 2ML/HR PER PROTOCOL). PTT WAS 95.5
--- NOTE | 2021-05-31 22:45 | NUR ---
NO RESIDUAL NOTED VIA NG TUBE BEFORE MEDS GIVEN. FLUSHED BEFORE AND AFTER WITH 30ML WATER. PLACEMENT CONFIRMED VIA AUSCULTATION.
--- NOTE | 2021-05-31 23:25 | NUR ---
HEPARIN DRIP RESTARTED AT THIS TIME AT 16ML/HR. MOUTH CARE COMPLETED.
[2021-06-01 00:01] VITALS: TEMP 99.2
--- NOTE | 2021-06-01 00:08 | NUR ---
B/P PER ART LINE LOW WITH MAP OF 60-56, DECREASED DIPRIVAN FROM 15 TO 10 WILLMONITOR.
--- NOTE | 2021-06-01 00:15 | NUR ---
VERSED DRIP DECREASED TO 7ML/HR FROM 8 DUE TO B/P LOW, CONTINUING TO MONITOR VERY CLOSELY. NOTE APPROX 400ML URINE OUT IN RICHARD. PT REPOSITIONED IN BED TO L SIDE, HANDS AND FOOT ELEVATED ON PILLOWS. NO ACUTE DISTRESS NOTED, VITALS BEING MONITORED.
--- NOTE | 2021-06-01 01:25 | NUR ---
RESTING WITH EYES CLOSED, NO S/S OF PAIN OR DISTRESS NOTED, REMAINS ON VENT, VITALS BEING MONITORED, B/P 90/52 WITH MAP OF 64, RESP RATE 14, HEART RATE 99, O2 SAT OF 97%, RICHARD PATENT, NG TUBE INTACT WITH FLUSHES AND FEEDINGS PER ORDER, CENTRAL LINE INTACT TO R FEMORAL VERSED DIPRIVAN AND HEPARIN DRIP ON GOING, WILL MONITOR, RAILS UP, BED IN LOW POSITION, ART LINE INTACT TO R WRIST, FOOT ELEVATED ON PILLOW WITH SERGIO HOSE TO L LEG.
[2021-06-01 04:00] VITALS: TEMP 99.6
--- NOTE | 2021-06-01 04:21 | NUR ---
RESTING WITH EYES CLOSED, NO S/S OF PAIN OR DISTRESS NOTED, RESP RATE NONLABORED, REMAINS ON VENT, CONSUMER LENDER IN USE WITH RATE OF 97, RICHARD PATENT DRAINING TO BEDSIDE WITH APPROX 700ML OUTPUT NOTED IN BAG, NG TUBE INTACT TO L NARE, CENTRAL LINE INTACT WITH DIPRIVAN INFUSING AT 10 VERSED DRIP AT 7ML/HR HEPARIN DRIP AT 16ML/HR, REPOSITIONED IN BED TO R SIDE, ART LINE INTACT TO R WRIST AREA, BP REMAINS LOW BUT MAP IS [address] KOEHLER. WILL MONITOR, RAILS UP, BED IN LOW POSITION. SERGIO HOSE INTACT TO L LEG(HAS R BKA), HANDS ELEVATED ON PILLOWS.
--- NOTE | 2021-06-01 05:00 | NUR ---
CHANGED DRESSING TO RIGHT BKA TO APPLY MUPIROCIN OINTMENT. NOTE APPROX 1/2 INCH IN DIAMETER ROUND BLACK CLOSED AREA AND A BLISTER, AREA RED. APPLIED MUPIROCIN OINTMENT COVERED WITH GAUZE AND WRAPPED WITH ROSALINA. PT HAS NO S/S OF DISTRESS NOTED, VITALS BEING MONITORED, WILL MONITOR CLOSELY, RAILS UP BED IN LOW POSITION. FOOT AND HANDS ELEVATED ON PILLOWS.
[2021-06-01 05:20] LABS: PLATELET COUNT 144 K/uL (152-353)
[2021-06-01 05:32] LABS: POTASSIUM 4.9 mmol/L (3.6-5.2)
--- NOTE | 2021-06-01 05:55 | NUR ---
PTT IS 62.2, INCREASED HEPARIN DRIP BY 1ML NEW RATE OF 17ML/HR.
--- NOTE | 2021-06-01 06:05 | NUR ---
REPOSITIONED IN BED TO BACK, NO ACUTE DISTRESS NOTED.
--- NOTE | 2021-06-01 13:05 | NUR ---
SPOKE WITH JHON GRIJALVA AND UPDATE GIVEN . HE ASKED FI I WOULD PLEASE LET DR KOEHLER KNOW THAT HE WANTED HER TO CALL HIM BACK SO HE COULD UPDATE REST OF THE FMAILY. I DID NOTIFIY MD AND INFORMATION GIVEN TO MD AT THIS TIME.
[2021-06-01 20:00] VITALS: TEMP 98.2
--- NOTE | 2021-06-01 20:02 | NUR ---
PT REMAINED STABLE THIS SHIFT. VS WNL. DRIPS REMAINS THE SAME. PT STILL ON VENT. TOELRATED TUBE FEEDINGS.
--- NOTE | 2021-06-01 22:00 | NUR ---
NO RESIDUAL NOTED VIA NG TUBE, GAVE NIGHTLY MEDS FLUSHED BEFORE AND AFTER WITH 30ML WATER, NO PROBLEMS NOTED. NO ACUTE DISTRESS NOTED. FACE WIPED WITH WET CLOTH AND MOUTH CARE PROVIDED. HANDS AND L LEG ELEVATED ON PILLOWS. RAILS UP, BED IN LOW POSITION, VITALS BEING MONITORED.
[2021-06-02 00:01] VITALS: TEMP 97.4
--- NOTE | 2021-06-02 00:10 | NUR ---
DIPRIVAN INCREASED TO 4MCG DUE TO PT LIFTING ARMS AND MOVING HEAD AROUND, WILL MONITOR CLOSELY AND MONITOR BP. WAS AT 2MCG/KG/MIN.
--- NOTE | 2021-06-02 01:00 | NUR ---
NO RESIDUAL NOTED VIA NG TUBE. GAVE 1 CAN OF GLUCERNA WITH 30ML WATER BEFORE AND AFTER FEEDING. PLACEMENT ALSO VARIFIED VIA AUSCULTATION. VITALS BEING MONITORED, RICHARD PATENT, FEMORAL LINE INTACT WITH DRIPIVAN VERSED AND HEPARIN DRIP ONGOING, REPOSITIONED, WILL MONITIOR CLOSELY, RAILS UP, BED IN LOW POSITION.
--- NOTE | 2021-06-02 02:10 | NUR ---
VERSED DRIP DECREASED TO 4 DUE TO LOW BP,, WILL MONITOR CLOSELY. DIPRIVAN DRIP DECREASED BACK DOWN TO 2MCG/KG/MIN.
--- NOTE | 2021-06-02 02:30 | NUR ---
SPOKE WITH DR. KOEHLER ABOUT PT'S LOW BP AND HER MAP. STATES MAP OF 55 OR HIGHER IS OKAY. WILL CONTINUE TO MONITOR CLOSELY.
[2021-06-02 04:00] VITALS: TEMP 97.9
--- NOTE | 2021-06-02 04:57 | NUR ---
RESTING WITH EYES CLOSED NO S/S DISTRESS NOTED, VITALS BEING MONITORED, REMAINS ON VENT, MAP PER ART LINE 58-60([address] ORDER [address] KOEHLER), NG TUBE INTACT, RICHARD PATENT, CENTRAL LINE INTACT TO R FEMORAL VERSED ONGOING ALONG WITH HEPARIN DRIP AT 18ML/HR DIPRIVAN DRIP AT 2MCG/KG/MIN, FOOT ELEVATED ON PILLOW, HOB ELEVATED, WILL MONITOR, RAILS UP, BED IN LOW POSITION.
[2021-06-02 05:02] LABS: PLATELET COUNT 182 K/uL (152-353)
[2021-06-02 08:24] LABS: POTASSIUM 4.3 mmol/L (3.6-5.2)
--- NOTE | 2021-06-02 09:40 | NUR ---
PATIENT'S HEAD OF BED PLACED IN 30 DEGREES.
--- NOTE | 2021-06-02 09:45 | NUR ---
NG TUBE ASSESSED AND AUSCULTATED, PLACEMENT CONFIRMED, NO RESIDUAL NOTED. AND FLUSHED WITH FREE WATER 30ML, AM MEDICATIONS CRUSHED AND GIVEN VIA NG TUBE AND FLUSHED WITH ADDITIONAL 30ML OF FREE WATER.
--- NOTE | 2021-06-02 10:30 | NUR ---
NG TUBE ASSESSED AND PLACEMENT CONFIRMED, NO RESIDUAL NOTED. NG TUBE FLUSHED WITH 60ML OF FREE WATER, GLUCERNA 1.2 X1 CARTON ADMINISTERED AND FLUSHED WITH ADDITIONAL 60ML OF FREE WATER. PATIENT TOLERATED WELL. PT'S HOB REMAINS AT 30 DEGREES.
--- NOTE | 2021-06-02 13:19 | NUR ---
PT BROTHER CALLED TO CHECK IN ON PATIENT STATUS. AN UPDATE HAS BEEN GIVEN AND I LET HIM KNOW THAT NO WEENING TRIALS HAVE BEEN PERFORMED TODAY. LATEST VITAL SIGNS AND NEURO STATUS WERE PROVIDED TO HIM. HE STATED THAT HE WOULD CALL BACK FOR A FOLLOW UP LATER.
--- NOTE | 2021-06-02 14:00 | NUR ---
ORAL CAVITY SUCTIONED, ORAL CAVITY SUCTIONED, ALSO SUCTIONED VIA INLINE CATH
--- NOTE | 2021-06-02 17:45 | NUR ---
HOB REMAINS AT 30 DEGREES, PTS NG TUBE CONFIRMED BY AUSCULTATION, NO RESIDUAL RESIDUAL NOTED, NG TUBE FLUSHED WITH 30ML OF FREE WATER, GLUCERNA 1.2 X1 ADMINISTERED VIA NG TUBE AND FLUSHED WITH 30ML OF FREE WATER. HOB REMAINS 30 DEGREES.
[2021-06-02 20:00] VITALS: TEMP 98.1
[2021-06-03] VITALS: TEMP 97.3
--- NOTE | 2021-06-03 01:27 | NUR ---
PATIENT REPOSITIONED ON HER RIGHT SIDE AND HER BUTTOCKS ASSESSED AND IT WAS NOTED PATIENT HAD A STAGE 2 DECUBIUTS ULCER WITH SKIN PEELING OFF. MEASUREMENTS ARE FOLLOWED 7 CM X 4 CM OPEN SKIN; 2 CM X 1 CM OPEN SKIN; CIRCUMFRENCE OF WHOLE AREA MEASURES 11 CM X 9CM. AREA CLEANED AND OPTIFOAM APPLIED. PATIENT FLOATED ON TO HER RIGHT SIDE OF HER BUTTOCKS.
--- NOTE | 2021-06-03 01:56 | NUR ---
PATIENT WAS REPOSITIONED AND HEEL FLOATED. WOUND ON SACRUM WAS REDRESSED
--- NOTE | 2021-06-03 03:29 | NUR ---
RT AT THE BEDSIDE DOING BREATHING TREATMENT.
[2021-06-03 04:00] VITALS: TEMP 96.9
--- NOTE | 2021-06-03 04:01 | NUR ---
RIGHT LEG WAS CLEANED AND OINTMENT AND DRESSING APPLIED TO STUMP. PATIENTS LEFT LEG WAS CLEANE AND WOUND WRAPPED. LEG IS ELIVATED ON PILLOW. LEFT FOOT IS BLANCHABLE AND PEDAL PULSE WAS FOUND
[2021-06-03 06:00] LABS: PLATELET COUNT 131 K/uL (152-353)
[2021-06-03 07:04] LABS: POTASSIUM 4.5 mmol/L (3.6-5.2)
[2021-06-03 08:00] VITALS: TEMP 98.3
--- NOTE | 2021-06-03 08:22 | NUR ---
DROPPED RATE FROM 16 TO 14 FOR WEANING
--- NOTE | 2021-06-03 09:53 | NUR ---
DROPPED RATE AGAIN FROM 14 TO 12
--- NOTE | 2021-06-03 10:36 | NUR ---
DROPPED RR TO 10 PT IS STARTING TO WAKE UP , WILL CONTINUE TO MONITOR AND TRY EANING PARAMETERS SHE GETS MORE ALERT.
--- NOTE | 2021-06-03 11:37 | NUR ---
DROPPED RR TO 8 AT THIS TIME PT. SPO2 99%.
[2021-06-03 12:00] VITALS: TEMP 98.2
--- NOTE | 2021-06-03 13:32 | NUR ---
DROPPED PATIENTS RR FROM 8 TO 6
--- NOTE | 2021-06-03 14:33 | NUR ---
DONE A CPAP TRIAL FOR 10 MINS. PATIENTS RR WENT UP TO 46 AND VT WAS BETWEEN 150-300
--- NOTE | 2021-06-03 15:10 | NUR ---
INCREASED RR FROM 6 TO 10 BECAUSE RR INCREASING FROM 35 -45 AND SUCTIONED PATIENT
[2021-06-03 16:00] VITALS: TEMP 98
--- NOTE | 2021-06-03 19:54 | NUR ---
0715 RADIOLOGY AT BEDSIDE FOR CHEST XRAY 1030 PHYSICIAN NOTIFIED OF CHEST XRAY AND LAB RESULTS, PHYSICIAN V/O UNDERSTANDING, NO FURTHER ORDERS NOTED AT THIS TIME 1048 VERSED INFUSION RATE DECREASED TO 5ML/HR, COVID SWAB COLLECTED
--- NOTE | 2021-06-03 19:56 | NUR ---
0950 VERSED INFUSION RATE DECREASED TO 7ML/HR, HEPARIN INFUSING AT 15ML/HR, AND DIPRIVAN INFUSION RATE DECREASED TO 8MCG/KG/MIN 0951 RESPIRATORY THERAPIST DECREASED RESPIRATORY RATE TO 12. PATIENT TOLERATING WELL WITH NO RESPIRATORY DISTRESS NOTED AT THIS TIME 1015 HOB AT 30 DEGREES, CONFIRMED PLACEMENT OF NG TUBE BY AUSCULTATING SAME, NG TUBE FLUSHED WITH 30ML OF FREE WATER, AM MEDICATIONS GIVEN, AND NG TUBE FLUSHED WITH ADDITIONAL 30ML OF FREE WATER. HOB REMAINS AT 30 DEGREES. 1033 RESPIRATORY RATE DECREASED TO 10 BY RESPIRATORY THERAPIST. VENTILATOR SETTINGS ARE TV 500, PEEP 5, PS 10, FIO2 30%. 1140 RT AT BEDSIDE, VENTILATOR RESPIRATORY RATE DECREASED TO 8 1205 NG TUBE ASSESSED AND AUSCULATED AND CONFIRMED PLACEMENT. HOB REMAINS AT 30 DEGREES, NG TUBE FLUSHED WITH 30ML OF FREE WATER, GLUCERNA 1.2 ADMINISTERED VIA NG TUBE AND FLUSHED WITH 30ML OF FREE WATER. PATIENT TOLERATED WELL. HOB REMAINS AT 30 DEGREES. 1320 RT DECREASED RESPIRATORY RATE TO 6, PT TOLERATING WELL 1335 DIPRIVAN INFUSION RATE DECREASED TO 7MCG, VERSED INFUSION RATE DECREASED TO 4ML/HR 1414 JOSSUE, RT, AT BEDSIDE SIDE, PATIENT'S VENTILATOR MODE CHANGED TO CPAP. VERSED INFUSION RATE DECREASED TO 2ML/HR AND DIPRIVAN INFUSION RATE DECREASED TO 5MCG. PATIENT SUCTIONED BY RESPIRATORY. 1421 TV 142, RESPIRATORY RATE 50, SPO2 94%, ABDOMINAL BREATHING NOTED. DR. KOEHLER NOTIFIED. VENTILATOR MODE CHANGED TO SIMV TV 500, RATE 6+5, PS 10, FIO2 30%. PATIENT SUCTIONED BY RESPIRATORY AT THIS TIME. 1504 PATIENT'S RATE CHANGED FROM 6 TO 10. RESPIRATORY RATE IS 32, VT 154. PT SUCTIONED BY RESPIRATORY THERAPIST. 1745 PATIENT GIVEN A LIMITED BED BATH AND REPOSITIONED ONTO LEFT SIDE WITH PILLOW PLACED BEHIND TORSO FOR SUPPORT AND UNDER BUE, LLE AND RIGHT STUMP FOR SUPPORT PATIENT TOLERATED WELL. DURING AM SHIFT, PATIENT WAS ORAL SUCTIONED MULTIPLE TIMES WITH COPIOUS AMOUNTS OF THICK WHITE SECRETIONS REMOVED. PATIENT WAS ALSO LAVAGED AND INLINE SUCTIONED WITH COPIOUS AMOUNTS OF THICK WHITE/TANNED SECRETIONS REMOVED. PATIENT TOLERATED WELL. PATIENT WAS ALSO REPOSITIONED 4 ADDITIONAL TIMES DURING AM SHIFT WITH PILLOWS PLACED FOR SUPPORT.
--- NOTE | 2021-06-03 21:15 | NUR ---
RESIDUAL CHECKED VIA NG TUBE TO LEFT NARE AND 0 ML NOTED ON RETURN. CONFIRMATION CHECKED BY ASCULTATING ABDOMEN AND GIVING 30 ML OF AIR AND IT WAS POSTITIVE. PATIENT GIVEN 1 CARTON OF GLUCERNA 1.2 (237 ML) AND APPROX 200 ML OF FREE WATER DURING FEEDING AND AFTER FOR FLUSH. PATIENT KEPT ABOVE 30 DEGREES WHILE FEEDING AND AFTER. NG TUBE CLAMPED. PATIENT TOLERATED WELL.
--- NOTE | 2021-06-03 22:05 | NUR ---
PATIENT WAS BITING THE ET TUBE, PROPOFOL WAS TITRATED UP TO 25MCG/MIN/KG
--- NOTE | 2021-06-03 23:08 | NUR ---
PATIENT HAS BEEN TITRATED DOWN SLOWLY ON THE PROPOFOL TO 5MCG/KG/MIN. PATIENT HAD A LARGE LOOSE BOWL MOVEMENT. PATIENT WAS DEEP SUCTIONED AND ORALLY SUCTIONED. PATIENT HAD A TOTAL BED CHANGE AND HER STAGE 2 ON HER SACRUM WAS DRESSED WITH A DUO-DERM. A TOTAL BED BATH WAS GIVEN AND PATIENT REPOSITIONED IN BED
[2021-06-04] VITALS (13 sets, daily range): BP systolic 89–125; BP diastolic 47–71; TEMP 98–98.5
--- NOTE | 2021-06-04 01:41 | NUR ---
PATIENT HAS BEEN REPOSITIONED AND HEEL AND STUMP FLOATED
--- NOTE | 2021-06-04 01:53 | NUR ---
PATIENT IS RESTING WITH EYES CLOSED. LABORED ABDOMINAL USE IS STILL NOTED. O2 SATS 92%.
--- NOTE | 2021-06-04 02:17 | NUR ---
NOTIFIED OF PATIENT BREATHING HEAVILY AND USING ABDOMEN MUSCLES MORE AT THIS TIME. NEW ORDER GIVEN TO TAKE PATIENT OFF NON REBREATHER AND SEE IF PATIENT WOULD ATTEMPT TO KEEP 02 SATS ABOVE 85%. ORDERS CARRIED OUT AT THIS TIME.
--- NOTE | 2021-06-04 02:53 | NUR ---
PATIENT PROPOFOL WAS TITRATED UP TO 10MCG/MIN/KG AND VERSED UP TO 7
[2021-06-04 04:01] LABS: PLATELET COUNT 124 K/uL (152-353)
[2021-06-04 04:43] LABS: POTASSIUM 4.6 mmol/L (3.6-5.2)
--- NOTE | 2021-06-04 08:00 | NUR ---
REC'D PT RESTING IN BED WITH EYES CLOSED. NO ACUTE DISTRESS NOTED. PT HAS VERSED INFUSING VIA PUMP, HEPARIN INFUSING VIA PUMP AT 13ML/HR AND DIPRIVAN INFUSING VIA PUMP AT 10MCG/KG/MIN. NGT INTACT TO LEFT NARE. ET TUBE INTACT AT 23 AT LIP LINE. PT ALSO HAS ART LINE TO RT WRIST AND TY CATH TO BS DRAINING YELLOW URINE. PT NOTED TO HAVE CENTRAL LINE TO RT GROIN. VENT SETTINGS TV 500, RATE OF 10, PEEP OF 5. PRESSURE SUPPORT 10 AND FIO2 30%. DRESSINGS NOTED TO RT BKA DRY AND INTACT.
--- NOTE | 2021-06-04 09:45 | NUR ---
NG TUBE PLACMENT VERIFIED. NO RISIDUAL NOTED. FLUSHED WITH 30CC FREE WATER. MEDS GIVEN VIA NG TUBE FOLLOWED BY 30CC FREE WATER FLUSH. PT TOELRATED WELL WITHOUT DIFFICULTY.
--- NOTE | 2021-06-04 11:00 | NUR ---
DR GRIMALDO HERE TO DO CONSULT [TIMUR SANCHEZ.
--- NOTE | 2021-06-04 11:05 | NUR ---
NG TUBE PLACEMENT VERIFIED. NO RISIDUAL NOTED. FLUSHED WITH 30CC FREE WATER ONE CARTON OF GLUCERNA GIVEN. FLUSHED WITH ANOTHER 30CC FREE WATER PT TOLERATED WELL WITHOUT DIFFICULTY.
--- NOTE | 2021-06-04 11:07 | NUR ---
SEDATION TURNED OFF AT THIS TIME PER MD ORDERS. MD WANTS [facility] TO DO ANOTHER TRIAL OFF VNET. ARIEL FROM [facility] AT BS.
--- NOTE | 2021-06-04 11:30 | NUR ---
DR GRIMALDO HERE PER MD ORDERS FOR CONSULT.
--- NOTE | 2021-06-04 11:30 | NUR ---
PT IS AWAKE AND ALERT. PT DOES RESPOND WHEN NAME CALLED. [facility] NOTIFIED THAT PT IS AWAKE AND THEY WILL COME DO WEANING TRIALS.
--- NOTE | 2021-06-04 11:33 | NUR ---
i spoke with pts brother Kwadwo Patricio [phone] Garcia's request. Kwadwo stated that pt Elham Patricio lived with him prior to her hospitalization. He stated that they are very close because they "have always taekn care of each other". He stated that Ms. Patricio did have 3 biological children, however, he stated that "[employer] took them when they were in diapers". He stated the children are: 1. Lori St-[phone]/ [phone]-lives in [place] 2. Alta Mustafa-does not have her number-lives in [place] 3. Parker Patricio-does not have his phone- not sure where he lives. Kwadwo Patrciio did state that Ms. Patricio does see her daughter, Lori, and Lori's children about every other weekend. He went on to state that Ms. Patricio does not see Alta or her children very often and that Ms. Patricio does not see Parker at all because "he does not want to be involved wrih her", he went on to state that Rene has "cussed me out when i called to tell him that Elham was in the hospital". Kwadwo Patricio did state that Ms. Patricio also has another brother, Yobani Kelley, . I tried calling Lori St at [phone] and abhilash was not in service. I also called [phone] and left a voicemail, and texted, but i have not heard back from her.
--- NOTE | 2021-06-04 11:45 | NUR ---
DR KOEHLER HERE AT THIS TIME. NO NEW ORDERS REC'D AT THIS TIME.
--- NOTE | 2021-06-04 12:17 | NUR ---
i spoke with pts other brother, Rajiv Molina" Sheng [phone], he stated that he is the patients brother, and that she does live with her other brother, Kwadwo Patricio, and that "Kwadwo and her are close". When questioned about pts children, he stated "Elham lost some and gave up some of her kids". He stated she only sees Lori and her kids "sometimes" but does not really see the other two children. He stated he does love his sister and would like to be updated if possible about her condition".
--- NOTE | 2021-06-04 12:20 | NUR ---
SPOKE WITH PT'S BROTHER JHON. UPDATE GIVEN. JHON STATES " IT'S OK TO TALK TO ROMEO, HER IS OUR FIRST COUSIN, PASSWORD [phone]."
--- NOTE | 2021-06-04 12:30 | NUR ---
UPDATE GIVEN TO ROMEO ZAMBRANO PER PT'S BROTHER DON'S REQUEST
--- NOTE | 2021-06-04 13:15 | NUR ---
PT REMAINS AWAKE AND ALWERT. CAN FOLLOW SIMPLE COMMANDS . PT NOTED TO BE COUGHING AND GAGGING. DR KOEHLER INFOMRED OF PT BEING AWAKE ALERT AND NEW ORDER REC'D TO START PRECEDEX AT THIS TIME. DR RICE INFOMRED ME SHE HAD SPOKEN TO TANYA IN PHARM AND FOR ME TO START HER ON LOWEST DOSE AND MONITOR VS KENZIE.
--- NOTE | 2021-06-04 13:43 | NUR ---
i spoke to pts biological daughter Lori St [phone] and she stated that she has not really known her mom until just recently, but she stated "i prefer not to be involved in her care or medical decisions". She stated she only sees pt about once per month, but that pt does see Lori's son "when he visits his dad down there" approx twice a month. She stated pts brother, "Don Sheng, would be the best one to make decisions for her".
--- NOTE | 2021-06-04 14:03 | NUR ---
[id number]: CPAP TRAIL ATTEMPTED. CPAP AT 15 AT 40% FIO2. PT WOULD ONLY PARTIALLY COOPERATE. WHEN COOPERATING PT WOULD PULL 300-400 VT WITH A RR AT 26. WHEN PATIENT REFUSED TO COOPERATE AND HOLD BREATH VT AT 60-100 AT A RR OF 39-42. SPO2 STAYED AT 99% HR BETWEEN 99-106. AFTER 30 MINS PT PLACED BACK ON SIMV SETTINGS. PT IS STILL AGITATED SHAKING HEAD, BITING ETT, AND TRYING TO REACH FOR TUBE.
--- NOTE | 2021-06-04 15:35 | NUR ---
CPAP TRIAL AT 15 STARTED AT THIS TIME. SPO2 AT 95%, RR 23, HR 90.
--- NOTE | 2021-06-04 15:44 | NUR ---
PT IS AGITATED AT THIS TIME. PT IS AGGRESSIVELY MOVING HEAD BACK AND FORTH, BITTING TUBE, NOT WILLING TO FOLLOW COMMANDS. VT LESS THAN 150. RR BETWEEN 37-42. LOW VE IS NOTED. PLACED PT BACK ON SIMV SETTINGS. SPO2 AT 99% HR: 105.
--- NOTE | 2021-06-04 18:09 | NUR ---
PT RESTING WITH EYES CLOSED. PT RESTING WITHOUT ANY DISTRESS AT THIS TIME. PT STILL ONLY RECEIVING PRECEDEX AT 0.2MCG.KG.HR. AT THIS TIME. PT HAS BEEN VERY RESPONSIVE THIS SHIFT. PT IS ABLE TO FOLLOW COMMANDS BUT REFUSES NOT TO. RESP HAS TRIED PT ON SEVERAL WEANING TRIALS BUT PT REFUSED TO FOLLOW COMMANDS AND TAKE DEEP BREATHS WEHN ASKED TOO. AWARE. TLC INTTACT TO RT GROIN ALONG WITH RICHARD CATH INTACT DRAINANG TO BEDSDIE.
--- NOTE | 2021-06-04 20:30 | NUR ---
PT AWAKING UP LIFTING HANDS UP TOWARDS HER FACE LOOKING AT STAGE PRODUCER AND SHAKING HER HEAD NO. REASSURED PT PT STILL SHAKING HER HEAD NO. INCREASED PRECEDEX DRIP TO 0.4 AT THIS TIME, WILL MONITOR FOR RESULTS. VITALS BEING MONITORED, WILL MONITOR CLOSELY, RAILS UP, BED IN LOW POSITION.
--- NOTE | 2021-06-04 21:00 | NUR ---
LESS THAN 5ML RESIDUAL NOTED VIA NG TUBE TO L NARE, PLACEMENT VARIFIED VIA AUSCULTATION. GAVE NIGHTLY MEDICATIONS AND ALSO GAVE FEEDING OF GLUCERNA 1 CAN VIA NG TUBE WITH NO PROBLEMS. FLUSHED BEFORE AND AFTER MEDS AND FEEDING WITH 30ML WATER. WILL MONITOR CLOSELY.
--- NOTE | 2021-06-04 21:30 | NUR ---
PT SUCTIONED VIA ET TUBE WITH SMALL AMOUNT OF CREAM COLORED SECRETIONS NOTED. SUCTIONED DUE TO O2 SAT DROPPED TO 79 AND PT APPEARS TO BE COUGHING MOVING HEAD AROUND. REASSURED PT. AFTER SUCTIONING PT SETTLED DOWN AND NOW HAS EYES CLOSED. WILL MONITOR CLOSELY, RAILS UP, BED IN LOW POSITION.
--- NOTE | 2021-06-04 21:50 | NUR ---
PT'S BROTHER DON CALLED TO CHECK ON PT.
--- NOTE | 2021-06-04 22:50 | NUR ---
PTT 89.1, NO CHANGE IN HEPARIN DRIP PER PROTOCOL.
[2021-06-05 00:01] VITALS: TEMP 98.7
--- NOTE | 2021-06-05 00:25 | NUR ---
RESTING WITH EYES CLOSED, NO S/S OF PAIN OR DISTRESS NOTED, RESP RATE NONLABORED, REMAINS ON VENT, CENTRAL LINE INTACT, RICHARD PATENT, NG TUBE INTACT, VITALS BEING MONITORED, WILL MONITOR CLOSELY, RAILS UP, BED IN LOW POSITION, HOB ELEVATED.
--- NOTE | 2021-06-05 02:35 | NUR ---
RESTING IN BED WITH EYES CLOSED, NO S/S OF PAIN OR DISTRESS NOTED, REMAINS ON VENT, VITALS BEING MONITORED, RICHARD PATENT, CENTRAL LINE INTACT TO R FEMORAL WITH DRIPS ONGOING, RESP RATE NONLABORED, NG TUBE INTACT TO L NARE, FEET ELEVATED ON PILLOWS AND HOB ELEVATED, RAILS UP, BED IN LOW POSITION.
[2021-06-05 04:00] VITALS: TEMP 98.4
--- NOTE | 2021-06-05 04:00 | NUR ---
RESTING WITH EYES CLOSED, NO S/S OF PAIN OR DISTRESS NOTED, RESP RATE NONLABORED, VITALS BEING MONITORED, RAILS UP, BED IN LOW POSITION.
[2021-06-05 05:10] LABS: PLATELET COUNT 134 K/uL (152-353)
--- NOTE | 2021-06-05 06:04 | NUR ---
PTT 158.4 HEPARIN DRIP STOPPED, WILL HOLD FOR 1.5 HOURS AND RESTART WITH RATE THAT IS DECREASED BY 4ML/HR PER PROTOCOL. DR. KOEHLER IN ICU AT THIS TIME AND NOTIFIED IN PERSON OF CRITICAL PTT.
[2021-06-05 06:30] LABS: POTASSIUM 5.2 mmol/L (3.6-5.2)
--- NOTE | 2021-06-05 08:00 | NUR ---
Pt. AWAKE WITH EYES OPEN. Pt. ATTEMPTING TO TALK. ET TUBE INTAKE 23 AT THE LIP. DRESSING DRY AND INTACT R STUMP.
--- NOTE | 2021-06-05 08:30 | NUR ---
FIO2 AT 40%. SPO2 AT 97%. RT DECREASED FIO2 TO 30%. SPO2 AT 96%.
--- NOTE | 2021-06-05 09:20 | NUR ---
NG TUBE PLACEMENT VERIFIED. NO RISIDUAL NOTED. FLUSHED WITH 30CC FREE WATER. AM MEDS GIVEN VIA NG TUBE. FLUSHED WITH 30CC FREE WATER. PT TOLERATED WELL AT THIS TIME.
--- NOTE | 2021-06-05 09:50 | NUR ---
NG TUBE PLACEMENT VERIFIED. FLUSHED WITH 30CC FREE WATER. ONE CARTON GLUCERNA GIVEN AT THIS TIME. FLUSHED WITH 30CC FREE WATER. PT TOLERATED WELL. PT NOTED TO BE AWAKE AND ATTEMPTING TO TALK. INFORMED PT TO JUST REST FOR NOW AND WHEN WE DO HER CPAP TRIAL AGAIN TODAY SHE NEEDS TO TRY TO TAKE SLOW DEEP BREATHS SO THAT SHE CAN GET THE ET TUBE OUT. PT NODDED AND CLOSED HER EYES. WILL CON'T TO MONITOR PT.
--- NOTE | 2021-06-05 11:00 | NUR ---
Pt. BROTHER CALLED. Pt. RESPONSE TO NAME WHEN CALLED.
--- NOTE | 2021-06-05 12:12 | NUR ---
CPAP TRAIL STARTED AT 15CM H2O. RR-28, SPO2:95%, HR:88. VT 315.
--- NOTE | 2021-06-05 13:11 | NUR ---
PT IS TOLERATING CPAP TRAIL WELL. SPO2 AT 96%, HR: 86. VT BETWEEN 275-350. IE AT 1:2.0. PT IS RESTING AT THIS TIME. WILL CONTINUE TO MONITOR FOR TOLERATION OF CONT CPAP.
--- NOTE | 2021-06-05 13:24 | NUR ---
RT REPORTED TO PT BEDSIDE. VERONIKA ALEXANDER STATES PT WAS IN A PANIC. WHEN RT ARRIVED AT PT BEDSIDE ALL VITALS STILL STABLE BUT PT STATES SHE NEEDS MORE AIR. RT CHANGED PT ABCK TO SIMV SETTINGS TO REST. WILL ATTEMPT ANOTHER CPAP TRIAL LATER THIS AFTERNOON FELIPE BY PT.
--- NOTE | 2021-06-05 16:40 | NUR ---
CPAP TRAIL ATTEMPTED. PT NOT FOLLOWING COMMANDS. PT SHOOK HER HEAD NO WHEN I ASKED HER TO TAKE GOOD DEEP BREATHS. PT CURRENTLY IN SIMV SETTINGS.
--- NOTE | 2021-06-05 17:31 | NUR ---
PT NG TUBE RETAPED DUE TO TAPE COMING UNDONE. VERIFIED PLACEMENT AT THIS TIME. FLUSHED WITH 30CC FREE WATER GLUCERNA X1 CARTON GIVEN AT THIS TIME. FLUSHED WITH 30CC FREE WATER. PT TOLERATED FEEDING WELL WITHOUT DIFFICULTY.
--- NOTE | 2021-06-05 18:20 | NUR ---
EYES OPEN WHEN NAME IS CALLED.
--- NOTE | 2021-06-05 19:35 | NUR ---
RESTING IN BED WITH HOB ELEVATED AND EYES CLOSED, NO S/S OF PAIN OR DISTRESS NOTED, REMAINS ON VENT WITH NO PROBLEMS NOTED, O2 SAT 95%, RESP RATE 18, HEART RATE 86, CENTRAL LINE INTACT TO R FEMORAL HEPARIN DRIP AND PRECEDEX ONGOING, ART LINE INTACT TO R WRIST, RICHARD PATENT DRAINING TO BEDSIDE WITH YELLOW URINE, SERGIO HOSE IN USE, NG TUBE INTACT TO L NARE, VITALS BEING MONITORED, WILL MONITOR CLOSELY, RAILS UP, BED IN LOW POSITION.
[2021-06-05 20:00] VITALS: TEMP 98.4
[2021-06-06 00:01] VITALS: TEMP 98.8
--- NOTE | 2021-06-06 01:15 | NUR ---
PTT 97.7, PLACED HEPARIN DRIP ON HOLD FOR 1 HOUR AND WILL DECREASE BY 2ML PER PROTOCOL. NO ACUTE DISTRESS NOTED AT THIS TIME, RESTING WITH EYES CLOSED, WILL MONITOR CLOSELY.
--- NOTE | 2021-06-06 02:15 | NUR ---
HEPARIN DRIP RESTARTED AT 14ML/HR PER PROTOCOL.
[2021-06-06 04:00] VITALS: TEMP 98.5
--- NOTE | 2021-06-06 04:09 | NUR ---
RESTING QUIETLY IN BED WITH EYES CLOSED, NO S/S OF PAIN OR DISTRESS NOTED, REMAINS ON VENT, RESP RATE 16, O2 SAT 96%, HEART RATE 86, ART LINE INTACT TO R WRIST, RICHARD PATENT DRAINING TO BEDSIDE, CENTRAL LINE INTACT TO R FEMORAL WITH HEPARIN AND PRECEDEX ONGOING, WILL MONITOR, RAILS UP.
--- NOTE | 2021-06-06 04:28 | NUR ---
AWAKE TRYING TO TALK TO MUSIC LIBRARIAN, NO ACUTE DISTRESS NOTED, REMAINS ON VENT, VITALS BEING MONITORED. PT ATTEMPTING TO WRITE ON PAPER TO MUSIC LIBRARIAN AT BEDSIDE. WILL BRING PT ALPHABET TO POINT AT. SUCTIONED VIA ET TUBE PT COUGHING SOME BEFORE SUCTIONING, SCANT AMOUNT OF SECRETIONS SUCTIONED. WILL MONITOR CLOSELY, RAILS UP, BED IN LOW POSITION.
[2021-06-06 04:31] LABS: PLATELET COUNT 140 K/uL (152-353)
[2021-06-06 04:57] LABS: POTASSIUM 4.9 mmol/L (3.6-5.2)
--- NOTE | 2021-06-06 06:30 | NUR ---
PT AWAKE WATCHING TV OFF AND ON WITH NO ACUTE DISTRESS NOTED, REMAINS ON VENT, VITALS BEING MONITORED, RICHARD PATENT, CENTRAL LINE INTACT, ART LINE INTACT TO R WRIST, NG TUBE INTACT. PLACEMENT OF NG TUBE CONFIRMED VIA AUSCULTATION, GAVE GLUCERNA 1 CAN FLUSHED BEFORE AND AFTER WITH 50ML WATER. PT POINTING AT LETTERS ON PAPER TO TRY TO COMMUNICATE WITH STAFF. FOOT AND R BKA ELEVATED ON PILLOWS. HOB REMAINS ELEVATED.
--- NOTE | 2021-06-06 15:00 | NUR ---
INFORMED PER ARIEL IN RT THAT PT TOLERATED 2 HRS ON CPAP PT REMAINS AWAKE AND ALERT. PT ABLE TO COMMUNICATE THUR USE OF POINTING TO LETTERS TO SPELL OUT WORDS. PT REMAINS AWAKE NO DISTRESS NOTED.
--- NOTE | 2021-06-06 15:42 | NUR ---
1300-PT PLACED ON CPAP TRAIL AT 15CM H2O. SPO2 AT 94%, HR-88, RR-26, VT BETWEEN 280-350, VE BETWEEN 6-9. PT IS COMFORTABLE. 1400-PT FELIPE WELL. WILL CONTINUE ON CPAP. 1500-PT STATES SHE WANTS TO BE BACK ON SIMV MODE. PT PLACED BACK ON SIMV SETTINGS FOR REST. WILL ATTEMPT ANOTHER CPAP TRAIL THIS EVENING.
--- NOTE | 2021-06-06 16:15 | NUR ---
NG TUBE PLACEMENT VERIFIED. FLUSHED WITH 30CC FREE WATER. GLUCERNA X 1 CARTON GIVEN AT THIS TIME FLUSHED WITH 30CC FREE WATER. PT TOLERATED WELL AT THIS TIME.
--- NOTE | 2021-06-06 18:00 | NUR ---
PT MORE ALERT THIS SHIFT. NO DISTRESS OR PROBLEMS THIS SHIFT. PT DID DEMONSTRATE TO US TODAY THAT SHE "WAS HUNGRY" SO ANOHTER FEEDING GIVEN AT THIS TIME 1 CAN OF GLUCERNA. PT TOLERATED WELL RESIDAUL CHECKED PRIOR TO FEEDING AND 0. PT REMAINS ON HEPARIN DRIP AT 15ML/HR INFUSING VIA PUMP AND PRECEDEX STILL INFUSING AT 0.4MCG VIA PUMP. NO OTHER PROBLEMS THIS SHIFTT
--- NOTE | 2021-06-06 18:48 | NUR ---
PT NOTED TO COMMUNICATE WITH STAFF THROUGH OUT THE SHIFT USING ALPHABET CHART AND POINTING AT EACH LETTER. PT ATTEMPTED TO WRITE ON PAPER AT TIMES.
[2021-06-06 20:00] VITALS: TEMP 98.4
--- NOTE | 2021-06-06 21:15 | NUR ---
AWAKE WATCHING TV, ALERT AND ORIENTED TO PERSON AND PLACE, TRIES TO TALK BUT DOES USE ALPHABET TO COMMUNICATE WITH STAFF, ON VENT, VITALS BEING MONITORED, RESP RATE NOLABORED, RICHARD PATENT, CENTRAL LINE INTACT TO R GROIN, ART LINE INTACT TO R WRIST, FOOT/R BKA ELEVATED ON PIOLLOWS ALONG WITH HANDS. VITALS BEING MONITORED, WILL MONITOR CLOSELY, RAILS UP. PT COOPERATIVE AND WATCHING TV.
--- NOTE | 2021-06-06 23:08 | NUR ---
PT DENIES ANY PAIN OR PROBLEMS, COUGHING DID SUCTION VIA ET TUBE WITH SCANT AMOUNT OF CREAM COLORED SECRETIONS NOTED, MOUTH CARE PROVIDED AND PT'S FACE WIPED WITH WET CLOTH. CENTRAL INTACT, RICHARD PATENT, RESP RATE NONLABORED, REMAINS ON VENT, VITALS BEING MONITORED, ART LINE INTACT TO R WRIST. HOB ELEVATED. NO RESIDUAL VIA NG TUBE TO L NARE, GAVE 50ML BEFORE AND AFTER MEDS/FEEDING GAVE 1 CAN GLUCERNA, TOLERATED WITH NO PROBLEMS, RAILS UP, BED IN LOW POSITION.
[2021-06-07 00:01] VITALS: TEMP 98.8
--- NOTE | 2021-06-07 02:00 | NUR ---
RESTING WITH EYES CLOSED, NO S/S OF PAIN OR DISTRESS NOTED, WILL MONITOR, RAILS UP, BED IN LOW POSITION.
[2021-06-07 04:00] VITALS: TEMP 99.5
--- NOTE | 2021-06-07 06:00 | NUR ---
AWAKE TRYING TO TALK WITH STAFF, USED ALPHABET LETTERS TO SPELL HER NEEDS/CONCERNS. STATES SHE IS HUNGRY. NO RESIDUAL NOTED VIA NG TUBE, 50ML H2O THEN GAVE MEDICATION AND GLUCERNA 1 CAN FOLLOWED BY 50ML WATER. PT TOLERATED WITH NO PROBLEMS, NO S/S OF DISTRESS NOTED, RESP RATE NONLABORED, RAILS UP, BED IN LOW POSITION.
[2021-06-07 06:04] LABS: PLATELET COUNT 138 K/uL (152-353)
[2021-06-07 06:16] LABS: POTASSIUM 4.9 mmol/L (3.6-5.2)
[2021-06-07 08:00] VITALS: TEMP 97.4
--- NOTE | 2021-06-07 08:22 | NUR ---
0820 PT PALCED ON CPAP OF 15 SEEMS TO BE TOLERATING WILL CONTINUE TO MONITOR.
--- NOTE | 2021-06-07 10:07 | NUR ---
2854 RT CALLED TO PT BEDSIDE FOR LOW POX. POX UPON ARRIVAL PT POX 81% WITH INCREASED RR. PT STATES SHE NEEDED TO BE SUCTIONED. PT PLACED ON 100% FIO2 AND LAVAGED AND SUCTIONED X 2. PT POX MOVED TO EAR. RR CAME DOWN AND POX INCREASED TO 98% PT NURSE INFORMED. PT INDICATES SHE FEELS MUCH BETTER.
--- NOTE | 2021-06-07 10:28 | NUR ---
0825 PT BECAME VERY ANXIOUS AND BEGAN WAIVING ARMS. PT INDICATES SHE CANT TOLERATE CPAP. PT PLACED BACK ON VENT AT PREVIOUS SETTINGS. PT NURSE INFORMED.
--- NOTE | 2021-06-07 11:45 | NUR ---
1140 PT PLACED ON CPAP 15 CMH2O. POX REMAINED 98-99%. PT NURSE INFORMED OF CHANGE. PT STATES SHE FEELS COMFORTABLE.
[2021-06-07 12:00] VITALS: TEMP 96.5
--- NOTE | 2021-06-07 12:10 | NUR ---
1140 PT INDICATES SHE WOULD LIKE TO TRY CPAP. PT PLACED ON CPAP AT [id number]. PT INDICATES SHE IS COMFORTABLE. POX 98%. NURSEINFORMED.
--- NOTE | 2021-06-07 12:12 | NUR ---
1155 PT INDICATES SHE IS NOT TOLERATING CPAP. PT POX 90%, RR 26, EXHALED VT LESS THAN 120. PT PLACED BACK ON SIMV. PT NURSE NOTIFIED.
--- NOTE | 2021-06-07 14:49 | NUR ---
1450 DR KOEHLER AT BEDSIDE. PT PLACED ON CPAP 15 CMH2O.
--- NOTE | 2021-06-07 15:36 | NUR ---
1525 PT EXTUBATED AND PLACED ON HHN WITH RACEMIC EPI AND PULMICORT. NO COMPLICATIONS. POX 96-98%. AFTER NEB TX PT PLACED ON 40% COOL AEROSOL. NURSE AND INFORMED.
--- NOTE | 2021-06-07 15:46 | NUR ---
Patient has a follow up appointment with Dr. Burden on June 28 @ 11:30 am in [place] office.
[2021-06-07 16:00] VITALS: TEMP 97.1
--- NOTE | 2021-06-07 18:36 | NUR ---
0820 RESPIRATORY AT BEDSIDE, PATIENT PLACED ON CPAP OF 15 0823 RESP AT BEDSIDE, PT MOTIONED TO RESPIRATORY SHE IS UNABLE TO TOLERATE CPAP MODE, VENT SETTING CHANGED TO SIMV MODE 1049 RESPIRATORY AT BEDSIDE ASSESSING PATIENT 1135 PATIENT ADVISES SHE WOULD LIKE TO TRY CPAP MODE AGAIN, REPORTED SAME TO RESPIRATORY 1140 PT PLACED ON CPAP MODE, 25CM H20 1155 PT STATES TO RESPIRATORY SHE IS UNABLE TO TOLERATE CPAP, POX DECREASED TO 90%, LOW EXHALED VE 1400 MEDICATIONS CRUSHED AND ADMINISTERED VIA NG TUBE, CONFIRMED PLACEMENT OF ET TUBE, FLUSHED WITH 30ML OF FREE WATER, MEDICATIONS ADMINISTERED AND FLUSHED WITH 30ML OF FREE WATER. 1440 VENTILATOR MODE CHANGED TO CPAP FOR TRIAL 1525 PATIENT EXTUBATED BY RESPIRATORY, RECEIVING RACEMIC EPINEPHRINE 1535 RESPIRATORY PLACED PT ON 40% COOL AIR AEROSOL
[2021-06-07 20:00] VITALS: TEMP 98.2
--- NOTE | 2021-06-07 21:47 | NUR ---
PATIENT STATED " I CAN'T BREATH WITH THIS MASK, CAN YOU PLEASE GET ME SOMETHING ELSE". PATIENT IS CURRENTLY ON ARESOL 02 40%. RT NOTIFIED AND PATIENT PLACED ON 5 LITERS NC. PATIENT IS TOLERATING WELL WITH SPO2 92-94%. PATIENT CONTINUES WITH PRODUCTIVE COUGH - COPIOUS AMOUNTS. PATIENT USES YANKEUR TO SUCTION HER MOUTH.
--- NOTE | 2021-06-07 22:14 | NUR ---
PATIENTS FAMILY HAS BEEN UPDATED ON PATIENTS CURRENT CONDITION. FMAILY MEMBERS QUESTIONS WERE ANSWERED AND HE WAS GIVEN TIME TO ASK QUESTIONS AND VOICE ANY CONCERNS
--- NOTE | 2021-06-07 22:19 | NUR ---
LAB CALLEDWITH A CRITICAL PTT OF118.7. PER PROTOCOL HEPRIN WAS TURNEDD OFF FOR AN HOUR AND THEN RESTARTED GOING AT 13MLS/HR
--- NOTE | 2021-06-07 23:20 | NUR ---
PATIENT STATED SHE NEEDED TO USE THE BEDSIDE COMMODE. PATIENT OFFERED ASSISTANCE WITH A BEDPAN. PATIENT STATED " I CAN USE THE BEDSIDE COMMODE". PATIENT EXTUBATED TODAY AND CONCERN FOR INCREASED FALL SECONDARY TO WEAKNESS. PATIENT WAS GIVEN OPPURTUNITY AND ASSISTANCE TO ATTEMPT AND GET UP TO BEDSIDE COMMODE BUT PATIENT DID NOT TOLERATE ACTIVITY STATING" I JUST CAN'T". PATIENT PLACED ON A BEDPAN. PATIENT HAD A LARGE BROWN PASTEY BOWEL MOVEMENT. WOUND TO SACRUM CLEANED WITH NORMAL SALINE AND PADDED DRY WITH OPTOFORM DRESSING APPLIED. EXCORIATION NOTED TO BILATERAL INNER THIGHS NEAR GROIN NOTED WITH SKIN INTACT. CALMOSEPTINE APPLIED.
[2021-06-08] VITALS: TEMP 97.3
[2021-06-08 04:00] VITALS: TEMP 97.3
[2021-06-08 04:08] LABS: PLATELET COUNT 199 K/uL (152-353)
[2021-06-08 04:13] LABS: POTASSIUM 4.5 mmol/L (3.6-5.2)
--- NOTE | 2021-06-08 05:48 | NUR ---
PATIENT WAS GIVEN A FULLBED BATH AND LINNEN CHANGE. PATIENT WAS GIVEN SEVERAL SWOLLOW TESTS AND HAS BEEN ADVANCED TO A FULL DIET. SHIS NOW A READY FOR A SOFT DIET
--- NOTE | 2021-06-08 06:52 | NUR ---
Drsg to rt. femoral central line changed. Cleaned with chlorohexidine and tegaderm applied.
--- NOTE | 2021-06-08 09:32 | NUR ---
Pt PLACED ON NC 4 LPM WITH HUMIDITY. SpO2 97%. Pt SITTING ON SIDE OF BED TO EAT BREAKFAST. 

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
--- NOTE | 2021-06-08 15:33 | NUR ---
Pt HOME BIPAP WAS BROUGHT IN. MACHINE WAS DIRTY. ATTEMPTED TO CLEAN MACHINE. WHILE ATTEMPTING TO CLEAN ROACHES EXITED THE MACHINE. MACHINE AND CIRCUIT WAS PLACED IN A TRASH BAG TO PREVENT ROACHES FROM EXITING MACHINE INTO ROOM. BAG WITH MACHINE AND CIRCUIT PLACED IN PATIENT AREA. 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
--- NOTE | 2021-06-08 15:48 | NUR ---
SAID PT MAY LEAVE MASK OFF WHILE AWAKE. NEEDS TO WEAR IT WHILE ASLEEP. AND HAVE [facility] TRILOGY MACHINE.
--- NOTE | 2021-06-08 15:57 | NUR ---
SPOKE TO HUSSEIN AT [phone] TO SERVICE TROLOGY MACHINE. MRS SAVAGE STATED SHE IS NOT ABLE TO OPEN THE MACHINE AND CLEAR ROACHES AND [employer]ANG [employer]OPPINGS FFROM IT. SHE ADVISED THAT WE BAG IT UP AND SUFFOCATE ROACHES MACHINES ARE SENT TO [facility] EVERY 2 YEARS FOR CLEANING AND SERVICING. SHE STATEDED PT HAS POOR LIVING CONDITIONS AND THERE WAS NO CHANGING THE LIVING SITUATIONS. NOTIFIED
[2021-06-08 20:00] VITALS: TEMP 99.1
--- NOTE | 2021-06-08 23:04 | NUR ---
PATIENT WAS HELPED TO THE BE HUBBARD AND WAS GIVEN A FULL BED CHANGE
--- NOTE | 2021-06-08 23:46 | NUR ---
PATIENT HELPED WITH BEDPAIN. PATIENT VOIDED 1 TIME.
--- NOTE | 2021-06-08 23:55 | NUR ---
PATIENT WAS HELPED TO THE BED HUBBARD AND THEN CLEANED
--- NOTE | 2021-06-09 00:59 | NUR ---
PATIENT CALLED FOR ASSISTANCE TO USE THE BEDPAN. PATIENT PLACED ON BEDPAN AT THIS TIME. PATIENT VOIDED AND THREW THE BEDPAN NEXT TO THE BED AND REMOVED BIPAP STATED " I JUST PEED". PATIENT ASKED FOR HELP TO SIT UP AT THE EDGE OF THE BED. PATIENT ASSITED X 2 PERSON ASSIST. PATIENT IS SITTING UP AT THE EDGE OF THE BED WITH BIPAP ON.
--- NOTE | 2021-06-09 01:30 | NUR ---
PATIENT IS UP SITTING AT THE EDGE OF THE BED. PATIENT REMOVED BIPAP. PATIENT STATED " I NEED TO LEAVE, I CAN GO HOME". PATIENT IS WEAK AND REQUIRES SOME ASSISTANCE WHILE MOVING IN THE BED. PATIENT STATED " I NEED TO USE BEDPAN". PATIENT ASSISTED X 2 PERSON ASSIST ON TO THE BEDPAN. PATIENT VOIDED X 1. PATIENT ALSO STATED " PLEASE REMOVE THIS IT IS HURTING MY HAND". PATIENT POINTED TO ART LINE. CIRCULATION TO ALL FINGERS ASSESSED AND GOOD CIRCULATION NOTED. ART LINE REMOVED AND WITH TIP INTACT. PRESSURE DRESSING APPLIED. NO BLOOD WAS NOTED WHENN IV CATHETER WAS REMOVED. PATIENT IS AGITATED AND KEEPS STATING SHE WANTS TO GO HOME. EDUCATED PATIENT THAT WOULD HAVE TO PUT ORDERS IN THE MORNING REGARDING HER DISCHARGE. PATIENT VOICED SOME UNDERSTANDING BUT STILL IS HESISTANT THAT SHE WANTS TO LEAVE AND GO HOME. BED IS LOCKED IN LOW POSITION AND PATIENT IS AT EYE SIGHT FOR SAFETY.
--- NOTE | 2021-06-09 02:03 | NUR ---
PATIENT IS STILL SITTING ON THE SIDE OF THE BED. PATIENT CONSENTED TO WEARING THE C-PAP
--- NOTE | 2021-06-09 02:11 | NUR ---
PATIENT CALLED FOR ASSISTANCE WITH BEDPAN. PATIENT VOIDED X1. PATIENT ASSISTED WITH WIPING. PATIENT PLACED BACK ON BIPAP.
--- NOTE | 2021-06-09 03:13 | NUR ---
PT HAS REMOVED BIPAP. NURSE AWARE.
--- NOTE | 2021-06-09 03:23 | NUR ---
PT REFUSES TO WEAR ANY O2 APPARATUS AT THIS TIME. NURSE NOTIFIED.
--- NOTE | 2021-06-09 03:23 | NUR ---
PATIENT REFUSING BREATHING TREATMENT, OR ANY OTHER BREATHING APPARTUS
--- NOTE | 2021-06-09 03:31 | NUR ---
PATIENT CONTINUES TO REFUSE 02 OF ANY KIND. MD NOTIFIED. NO NEW ORDERS AT THIS TIME. PATIENTS O2 SATURATION RANGES FROM 79-91%
--- NOTE | 2021-06-09 03:55 | NUR ---
WHILE ASSESSING OTHER PATIENT IS RESPIRATORY DISTRESS. PATIENT ATTEMPTED TO GET OUT OF BED ON HER OWN AND SLID TO THE FLOOR. PATIENT FOUND SITTING ON THE FLOOR. PATIENT ASSESSED AND WAS AOX3. BRUISING NOTED TO THE LEFT LOWER SHEIN. PATIENT HAS NO OTHER COMPLAINS. WHEN ASKING PATIENT WHAT HAPPENED SHE STATED " I WAS TRYING TO GET OUT OF HERE AND NO ONE WAS GIVING MY A RIDE", " I NEED TO SEE WHAT DON IS DOING". PATIENT PICKED UP FROM THE FLOOR X 4 PERSON MAX ASSIST. NO OTHER INJURYS WERE NOTED OR VISIBLY SEEN. PATIENT DENIES ANY PAIN.
[2021-06-09 04:00] VITALS: TEMP 98.8
--- NOTE | 2021-06-09 04:01 | NUR ---
AFTER LIFING PATIENT BACK UP TO THE BED, BED LINENS CHANGED AND PATIENT PLACED ON BEDPAN. PATIENT VOID X1.
--- NOTE | 2021-06-09 04:08 | NUR ---
NOTIFIED ABOUT PATIENT FALLING AND NO COMPLAINTS FROM PATIENT. NO NEW ORDERS WERE GIVEN AT THIS TIME. AT THE TIME OF INCIDENT BED WAS LOCKED IN LOW POSITION.
--- NOTE | 2021-06-09 04:10 | NUR ---
PATIENT REMOVED BIPAP AFTER PLACING IT ON HER AFTER INCIDENT DESPITE BEING REDIRECTED SEVERAL TIMES TO LEAVE MASK ON. PATIENT NOT BEING COMPLIANT REFUSING BIPAP MASK. PATIENT PLACED ON NC AT 4LPM.
--- NOTE | 2021-06-09 07:07 | NUR ---
PATIENT IS RESTING QUIETLY. PATIENT DENIES ANY PAIN
[2021-06-09 08:32] LABS: PLATELET COUNT 221 K/uL (152-353)
[2021-06-09 08:48] LABS: POTASSIUM 3.9 mmol/L (3.6-5.2)
--- NOTE | 2021-06-09 08:48 | NUR ---
Patient has a follow up appointment with Francoise Mixon at [facility] on June 16 at 2pm. [phone].
--- NOTE | 2021-06-09 10:33 | NUR ---
PT REC'D BATH BY [facility]. PT REQUESTED TO BE PLACED ON BIPAP AFTER HER BATH. NOTIFIED RESPIRATORY. SPOKE WITH JOSSUE RT WHO STATES "SHE ONLY WEARS IT AT NIGHT SHE IS PERFECTLY FINE ON THAT 4 LITERS JUST GIVE HER SOME TIME TO RECOVER" INFORMED HER THAT PT IS REQUESTING HER BIPAP BE PUT ON.
--- NOTE | 2021-06-09 10:35 | NUR ---
YOON YBARRA RN AT PT'S BEDSIDE TO ASSESS PT AND CURRENT O2 SATS AFTER BATH. INFORMED PT WE HAVE NOTFIED RESPIRATORY.
--- NOTE | 2021-06-09 10:45 | NUR ---
DR KOEHLER HERE MAKING ROUNDS. VERBAL ORDERS REC'D TO LET PT SIGN OUT AMA IF SHE WAS ADAMENT ABOUT GOING HOME. UR NOTIFIED PER MD AWAITING ARRIVAL TO ICU.
--- NOTE | 2021-06-09 11:00 | NUR ---
NATE FROM IN ICU. DR KOEHLER AND NATE TALKING CONCERNING PT'S FOLLOW UP APPTS BEING SCHEDULED TALKED ABOUT ON 06/08/21. APPT CARDS FOR REFFERALS PREVIOUSLY DISCUSSED WAS ON FRONT OF THE CHART MD HAD REQUESTED. MICHELLE IN [place] CALLED TO INQUIRE ABOUT PT'S TRILOGY/BIPAP BEING CLEANED. MACHINE REMAINS IN SEALED PLASTIC BAG FROM PRIOR SHIFT ON 06/08/21. SPOKE WITH PARAM WHO WOULD CHECK ABOUT SENDING IT TO [facility] AND WILL CHECK ABOUT LOANER WHILE PT'S MACHINE SENT OFF TO BE CLEANED. 1120 HUSSEIN CALLED FROM [facility] IN [place] AND STATED THERE WAS NO LOANERS TO BE GIVEN OUT. HUSSEIN ALSO STATED "HER HOME SITUATION HAD NOT CHANGED SO THEY WOULD NOT GIVE PT A NEW MACHINE" INFORMED DR KOEHLER OF WHAT I HAD BEEN INFORMED OF . KAYE STATED THAT SHE WOULD FOLLOW UP WITH PT ON MONDAY
[2021-06-09 12:00] VITALS: BP 119/60; TEMP 98.9
--- NOTE | 2021-06-09 13:00 | NUR ---
INFOMRED PER ADMISSIONS THAT PT'S RIDE MS COBB HERE TO GET HER. EXPLAINED TO PT AGAIN AT THIS TIME THAT THE MD HAD NOT DISCHARGED HER HOME THAT IF SHE LEFT IT WOULD BE AMA. EXPLAINED TO PT THAT RISK OF AND OR WORSENING CONDITION MAY HAPPEN. PT VERBALIZED UNDERSTANDING AND VERBALZIED UNDERSTANDING OF ALL FOLLOW UP APPTS (CARDS MADE BY UR WITH DATE AND TIMES ) GIVEN TO PT. PT DID REQUEST AT THIS TIME TO GO AHEAD AND SIGN THE AMA. CENTRAL LINE TO RT GROIN DC'D AND PRESSURE APPLIED AT THIS TIME. PT TOELRATED WELL. NO ACTIVE BLEEDING NOTED TO SITE.
--- NOTE | 2021-06-09 13:15 | NUR ---
PT PLACED IN WC X 3 PPL. PT UNABLE TO HELP TRANSFER FROM BED TO WC . PT STILL STATES THAT SHE STILL WATNS TO SIGN OUT AMA. PT PUSHED TO ADMISSIONS PER STAFF AND THE PERSON THAT HAD CALLED AND STATED THEY WAS HERE TO GET HER NO LONGER HERE. PT'S BROTHER JHON CALLED AND INFORMED FAMILY HAD LEFT AND PT WAS CURREBTLY IN WC IN THE FRONT OF HOSP. JHON STATED HE WOULD TRY TO CALL THE LADY BACK. 1345 DON HERE TO TAKE PT HOME. PT PLACED IN JHON'S TRUCK X 2 PHYSICAL ASSIST.
--- NOTE | 2021-06-09 13:38 | NUR ---
Patient has a follow up appointment with Maria Luisa mckeon in their [place] office on 07/12/21 @ 9:20am. ICU nurse calling patient to notify patient of appointment date and time. Dr. Garcia notified of appointment.
== END 2021-06-09 13:00 | disposition left against medical advice (07) | DRG 207 ==
LOC: ED 02:56 → PCU 05-30 15:50 → UNDODEPER 06-04 18:17 → PCU 06-09 13:00
PROVIDERS: Emergency Medicine Emergency Medical Services; Internal Medicine; ADMIT Family Medicine; ATTEND Family Medicine
PROC: 06HM33Z Insertion of Infusion Device into Right Femoral Vein, Percutaneous Approach (ICD-10-PCS; principal; 2021-05-29)
PROC: 5A1955Z Respiratory Ventilation, Greater than 96 Consecutive Hours (ICD-10-PCS; 2021-05-29)
PROC: 0BH17EZ Insertion of Endotracheal Airway into Trachea, Via Natural or Artificial Opening (ICD-10-PCS; 2021-05-29)
DX: U07.1 COVID-19 (principal); I21.4 Non-ST elevation (NSTEMI) myocardial infarction; R57.0 Cardiogenic shock; J12.82 Pneumonia due to coronavirus disease 2019; I50.22 Chronic systolic (congestive) heart failure; I42.8 Other cardiomyopathies; L03.116 Cellulitis of left lower limb; L03.115 Cellulitis of right lower limb; J96.12 Chronic respiratory failure with hypercapnia; I95.89 Other hypotension; K21.9 Gastro-esophageal reflux disease without esophagitis; I25.10 Atherosclerotic heart disease of native coronary artery without angina pectoris; E78.49 Other hyperlipidemia; J44.9 Chronic obstructive pulmonary disease, unspecified; I11.0 Hypertensive heart disease with heart failure; I73.89 Other specified peripheral vascular diseases; Z89.511 Acquired absence of right leg below knee; F19.10 Other psychoactive substance abuse, uncomplicated; E88.09 Other disorders of plasma-protein metabolism, not elsewhere classified
CPT/HCPCS: 36415; 36558; 36591; 36600; 36620; 51702; 80053; 80061; 80202; 80307; 81000; 82550; 82553; 82728; 82805; 82948; 83735; 83880; 84100; 84443; 84484; 85027; 85379; 85610; 85730; 86140; 87040; 87070; 87077; 87185; 87186; 87205; 87635; 93005; 94002; 94003; 94640; 94660; 94664; 94760; 96360; 96365; 96366; 96368; 96375; 99285; C1768; J0330; J0696; J1265; J1644; J1815; J1940; J2060; J2250; J2270; J2405; J2920; J3370; J3411; J3475; J3490; Q0239; Q0245; U0003

== ENCOUNTER 2021-06-10 06:58 | Inpatient (IN) | payer OTHER ==
[~2021-06-10] VITALS: Ht 165.1 cm; Wt 69.1 kg
[2021-06-10] VITALS (12 sets, daily range): BP systolic 120–153; BP diastolic 72–94; TEMP 98–98.3; Ht 165.1 cm; Wt 69.1 kg
[2021-06-10 08:14] LABS: POTASSIUM 3.9 mmol/L (3.6-5.2)
[2021-06-10 08:48] LABS: PLATELET COUNT 185 K/uL (152-353)
[2021-06-10 10:19] LABS: PARTIAL THROMBOPLASTIN TIME 20.7 SECONDS (24.5-33.6)
[2021-06-11] VITALS: BP 120/70; TEMP 98.6
[2021-06-11 04:00] VITALS: BP 102/58; TEMP 97.8
[2021-06-11 05:04] LABS: PLATELET COUNT 248 K/uL (152-353)
[2021-06-11 05:05] LABS: POTASSIUM 3.9 mmol/L (3.6-5.2)
[2021-06-11 08:30] VITALS: BP 119/71
[2021-06-11] MEDS ORDERED: LIPITOR40 MG PO (11:00)
[2021-06-11] MEDS ORDERED: SITA50TA2 PO (11:00)
[2021-06-11 12:00] VITALS: BP 90/54; TEMP 96.1
[2021-06-11 16:00] VITALS: BP 98/29; TEMP 98.7
[2021-06-11 20:20] VITALS: BP 110/64; TEMP 97.7
[2021-06-12] VITALS: BP 72/90; TEMP 97.6
[2021-06-12 04:00] VITALS: BP 99/51; TEMP 97.5
[2021-06-12 04:31] LABS: PLATELET COUNT 165 K/uL (152-353)
[2021-06-12 04:43] LABS: POTASSIUM 3.5 mmol/L (3.6-5.2)
[2021-06-12 08:00] VITALS: BP 105/59; TEMP 97.2
[2021-06-12 12:00] VITALS: BP 91/52
[2021-06-12 16:00] VITALS: BP 96/59; TEMP 97.5
[2021-06-12 20:25] VITALS: BP 104/58; TEMP 98.2
[2021-06-13 04:23] VITALS: BP 113/68; TEMP 96.6
[2021-06-13 05:10] LABS: PLATELET COUNT 176 K/uL (152-353)
[2021-06-13 08:00] VITALS: BP 118/86; TEMP 98.7
[2021-06-13 12:00] VITALS: BP 110/83; TEMP 98.4
[2021-06-13 16:00] VITALS: BP 106/67; TEMP 98
[2021-06-13 20:22] VITALS: BP 100/77; TEMP 98.3
[2021-06-13 23:54] VITALS: BP 116/63; TEMP 97.7
[2021-06-14 05:59] LABS: PLATELET COUNT 220 K/uL (152-353)
[2021-06-14 06:12] LABS: POTASSIUM 3.2 mmol/L (3.6-5.2)
[2021-06-14 08:00] VITALS: BP 125/73; TEMP 97.6
[2021-06-14 12:00] VITALS: BP 87/52; TEMP 98.6
[2021-06-14 16:00] VITALS: BP 98/54; TEMP 97.9
[2021-06-14 20:00] VITALS: BP 134/66; TEMP 98.3
[2021-06-15 04:00] VITALS: BP 125/59; TEMP 97.7
[2021-06-15 08:00] VITALS: BP 131/74; TEMP 97.8
[2021-06-15 08:25] LABS: POTASSIUM 4.9 mmol/L (3.6-5.2)
[2021-06-15 08:34] LABS: PLATELET COUNT 190 K/uL (152-353)
[2021-06-15 11:57] VITALS: BP 94/57; TEMP 98
[2021-06-15 16:00] VITALS: BP 121/65; TEMP 98.4
[2021-06-15 20:00] VITALS: BP 88/54; TEMP 98.1
[2021-06-16 07:14] LABS: POTASSIUM 4.7 mmol/L (3.6-5.2)
[2021-06-16 07:59] LABS: PLATELET COUNT 248 K/uL (152-353)
[2021-06-16 08:00] VITALS: BP 122/80; TEMP 97.7
[2021-06-16 12:00] VITALS: BP 99/45; TEMP 98
[2021-06-16 16:00] VITALS: BP 83/39; TEMP 98.2
[2021-06-16 20:00] VITALS: BP 67/30; TEMP 98.2
[2021-06-17] VITALS: BP 77/46; TEMP 98.5
[2021-06-17 04:00] VITALS: BP 90/51; TEMP 98.3
[2021-06-17 07:34] LABS: PLATELET COUNT 193 K/uL (152-353)
[2021-06-17 07:41] LABS: POTASSIUM 3.5 mmol/L (3.6-5.2)
[2021-06-17 08:00] VITALS: BP 100/46; TEMP 98.4
[2021-06-17 12:00] VITALS: BP 79/49; TEMP 98.6
[2021-06-17 12:40] VITALS: BP 110/50
[2021-06-17 20:00] VITALS: BP 70/36; TEMP 98.1
[2021-06-18 00:05] VITALS: BP 77/41; TEMP 98.4
[2021-06-18 04:00] VITALS: BP 89/46; TEMP 98.6
[2021-06-18 08:00] VITALS: BP 81/50; TEMP 97.5
[2021-06-18 12:00] VITALS: BP 102/60; TEMP 97.9
[2021-06-18 16:00] VITALS: BP 145/82; TEMP 98
[2021-06-18 20:00] VITALS: BP 118/60; TEMP 97.5
[2021-06-19 04:00] VITALS: BP 117/96; TEMP 97.7
[2021-06-19 08:00] VITALS: BP 145/62; TEMP 97.8
[2021-06-19 12:00] VITALS: BP 113/67; TEMP 97.6
[2021-06-19 16:00] VITALS: BP 106/62; TEMP 97.8
== END 2021-06-19 23:10 | disposition left against medical advice (07) | DRG 189 ==
LOC: ED 07:02 → MED/SURG 09:00
PROVIDERS: Family Medicine; ADMIT Internal Medicine Endocrinology, Diabetes & Metabolism; ATTEND Internal Medicine Endocrinology, Diabetes & Metabolism
DX: J96.01 Acute respiratory failure with hypoxia (principal); T80.218A Other infection due to central venous catheter, initial encounter; I50.22 Chronic systolic (congestive) heart failure; M62.81 Muscle weakness (generalized); R26.2 Difficulty in walking, not elsewhere classified; Z74.1 Need for assistance with personal care; Z91.19 Patient's noncompliance with other medical treatment and regimen; Z89.511 Acquired absence of right leg below knee; B96.20 Unspecified Escherichia coli [E. coli] as the cause of diseases classified elsewhere; J44.9 Chronic obstructive pulmonary disease, unspecified; I25.2 Old myocardial infarction; E11.9 Type 2 diabetes mellitus without complications; I11.0 Hypertensive heart disease with heart failure; I73.89 Other specified peripheral vascular diseases
CPT/HCPCS: 36415; 36416; 36600; 80048; 80053; 80307; 82550; 82553; 82805; 83605; 83880; 84484; 85027; 85610; 85730; 87040; 87635; 93005; 94640; 94760; 96372; 99283; 99284; J0456; J0696; J1335; J1650; J1815; J1940; J2185; J2270; J2405; J2930; P9047; U0003